=== PATIENT | male | born 1945 | race Caucasian/White ===

== ENCOUNTER 2018-03-07 12:58 | Inpatient (IN) | payer OTHER, MEDICAID ==
[~2018-03-07] VITALS: Ht 172.7 cm; Wt 78.0 kg
--- NOTE | ~2018-03-07 | PR ---
[place], [place] PROGRESS NOTE NAME: IVÁN OLSON UNIT #: [id number] ROOM: 315 DOCTOR: BRYCE VASQUEZ MD BIRTHDATE: [birth year] DOS: 03/15/2018 CHIEF COMPLAINT: "I guess I say things that I shouldn't. I've always been that way." SUMMARY OF THE VISIT: The patient was interviewed as he was coming into the continued stay hearing. He was pleasant and quite talkative during the hearing. He voiced no complaints other than he was somewhat remorseful over his behavior. He has been much more contrite and much more redirectable. MENTAL STATUS: He is alert and oriented to person, possibly place, certainly not time. Mood does seem to be trending towards euthymia. Affect is more appropriate. There is no kacey or hypomania. There are no gross psychotic symptoms. Short term memory continues to be problematic. PLAN: I will recheck a serum ammonia level today and maintain his current psychotropic regimen. Continue to engage in individual and velasquez milieu activity, returning to the least restrictive environment when psychiatrically stable. BRYCE VASQUEZ MD CM:PNTRANS [id number] BRYCE VASQUEZ MD 03/16/18 0326 interface
--- NOTE | ~2018-03-07 | PR ---
[place], [place] PROGRESS NOTE NAME: IVÁN OLSON UNIT #: [id number] ROOM: 309 DOCTOR: BRYCE VASQUEZ MD BIRTHDATE: [birth year] DOS: 03/09/2018 CHIEF COMPLAINT: "See all the pratt over there, what's going on here." SUMMARY OF THE VISIT: The patient was interviewed in the dining area. He had already finished his breakfast, and he was sitting there quietly. He engaged in superficial, confused, conversation with me tending to ramble once again. Nurses report that for the most part, he was pleasant yesterday until the late afternoon early evening when he became much more agitated and much more difficult to redirect. MENTAL STATUS: He is alert and oriented to person, possibly place, although that is doubtful, not to time. Mood does still seem to be labile. Affect inappropriate. There is no kacey or hypomania. There is no gross psychosis at this time, but this seems to exacerbate in the evening hours. Short-term memory is extremely problematic. PLAN: I will add Risperdal M-Tab 1 mg at q. 1700 hours in an effort to get ahead of any symptoms. Engage in individual and velasquez milieu activity, returning to the least restrictive environment when psychiatrically stable. BRYCE VASQUEZ MD CM:PNTRANS [id number] 21 BRYCE VASQUEZ MD 03/09/182123 interface
--- NOTE | ~2018-03-07 | PR ---
[place], [place] PROGRESS NOTE NAME: IVÁN OLSON UNIT #: [id number] ROOM: 315 DOCTOR: BRYCE VASQUEZ MD BIRTHDATE: [birth year] DOS: 03/14/2018 CHIEF COMPLAINT: "Oh, I'm okay. I don't need anything." SUMMARY OF THE VISIT: The patient was interviewed as he was sitting in a Angie chair in the dining area. He had completed his breakfast. He engaged in pleasant conversation with me. At no time during his conversation with me was he inappropriate. He was not labile. He was not agitated. He was not aggressive; however, nurses report an entirely different picture as the day goes on. He has been resistant to care. He has been verbally and physically combative. He has been yelling out profanities and has been striking out at times. He has been tolerating the medicine well. There is some mild drooling noted. MENTAL STATUS: He is alert and oriented to person, place, not necessarily time. Mood does seem to be trending towards euthymia at least with me, although again nurses report a different picture. They paint a picture of extreme mood lability and impulsivity. There are no overt auditory or visual hallucinations. No voiced delusions. No voiced paranoia. Short term memory continues to be problematic. PLAN: His valproic acid level is therapeutic at 69.2, so I will maintain his current Depakote dosing. I will renew his p.r.n. Ativan should he require intervention. Given the fact that he is exhibiting significant impulsivity and aggression during the day, I will increase his Risperdal from 1 mg twice a day to 2 mg twice a day. I will add Cogentin 1 mg twice a day to offset the extrapyramidal symptoms that are causing the drooling. I will engage in individual and velasquez milieu activity with the ultimate plan to return to the least restrictive environment when psychiatrically stable. BRYCE VASQUEZ MD CM:PNTRANS [id number] BRYCE VASQUEZ MD 03/15/18 0339 interface
--- NOTE | ~2018-03-07 | PR ---
[place], [place] PROGRESS NOTE NAME: IVÁN OLSON UNIT #: [id number] ROOM: 315 DOCTOR: ROXANE DANIELS CNP BIRTHDATE: [birth year] DOS: 03/18/2018 CHIEF COMPLAINT: "I am not good." SUMMARY OF THE VISIT: The patient was interviewed as he sat in a recliner chair in the dining room. The patient reports that he is not feeling well. He is sleeping well. Staff reports that the patient's mood continues to be labile. He has been nauseated. He did take his medications. His serum ammonia level remains elevated, and his lactulose was increased on the th to 30 g 4 times a day. MENTAL STATUS EXAMINATION: The patient is alert and oriented. He was pleasant and cooperative with me. No kacey or hypomania. No delusions or paranoia. No auditory or visual hallucinations. No gross psychosis noted. He verbalizes minimally with me and does not open his eyes as we talk. His mood was calm. No aggression, no agitation noted at this time. PLAN: We will continue the patient's medications as prescribed. We will recheck an ammonia level tomorrow morning. We will continue to encourage the patient to engage in individual and velasquez milieu activity. Continue fall and safety precautions and plan to return the patient to the least restrictive environment once considered psychiatrically stable. Roxane Daniels CNP CM:PNTRANS [id number] ROXANE DANIELS CNP 03/18/18 2350 interface
--- NOTE | ~2018-03-07 | WRIGHTHP ---
[place], [place] PATIENT HISTORY AND PHYSICAL EXAM NAME: IVÁN OLSON UNIT #: [id number] ROOM: 309 DOCTOR: BRYCE VASQUEZ MD BIRTHDATE: [birth year] DOS: 03/08/2018 CHIEF COMPLAINT: "Oh, I got off the bus and all I saw was pratt and monuments, it was the strangest thing." HISTORY OF PRESENT ILLNESS: This is a 72-year-old white male who is a resident of [facility] in [place], [place]. The patient was sent here after increased behaviors, especially verbal and physical aggression towards staff and other patients. In fact, when the patient was sent to the Emergency Room at [facility] he was significantly agitated and aggressive. The patient has a history of having a brain tumor that was surgically removed and having a history of seizures. His last seizure apparently was in 1998. He is admitted now to rule out organic factors, to stabilize on medication and to return to the least restrictive environment. 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 SOCIAL HISTORY: He does not use illicit drugs. He does not use alcohol nor is he a smoker. ALLERGIES: He lists no known allergies. STRENGTHS: Good verbal skills. WEAKNESSES: Cognitive decline, poor coping skills. MENTAL STATUS: He is alert and oriented to person, possibly place, not to time. Mood this morning with me was fairly euthymic and he was rather talkative just grabbing to me how he got here stating that he had taken a bus into a field of pratt and monuments. He did remember he lived in [place], but could not tell me where he lived, he was pleasant and bright for the most part, he was not agitated. Memory had gaps, note this is in mahan contrast to what nurses noted in the evening when he was verbally and physically aggressive towards staff and even called the security people multiple names and try to engage them in physical altercations. 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 PLAN: I have increased his Exelon patch from 4.6 to 9.5 mg and will target a 13.3 mg dose. Likewise, I have increased his Namenda from 10 mg a day to 10 mg b.i.d. I have added Depakote 250 mg twice daily and 500 mg at bedtime to decrease his impulsivity. I will check an RBC folate level given his lengthy history of being on Dilantin and also check a prolactin level to see if there is a possibility that he is having unwitnessed seizures. We will engage in individual and velasquez milieu activity, returning to the least restrictive environment when psychiatrically stable. [place], [place] PATIENT HISTORY AND PHYSICAL EXAM NAME: IVÁN OLSON UNIT #: [id number] ROOM: 309 DOCTOR: BRYCE VASQUEZ MD BIRTHDATE: [birth year] BRYCE VASQUEZ MD CM:HISPHYS:PATIENT HISTORY AND PHYSICAL EXAMINATION 2 BRYCE VASQUEZ MD 03/08/18914 interface
--- NOTE | ~2018-03-07 | EKG ---
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
--- NOTE | ~2018-03-07 | PR ---
[place], [place] PROGRESS NOTE NAME: IVÁN OLSON UNIT #: [id number] ROOM: 315 DOCTOR: BRYCE VASQUEZ MD BIRTHDATE: [birth year] DOS: 03/10/2018 INTERVAL NOTE CHIEF COMPLAINT: "What do you want?" SUMMARY OF THE VISIT: The patient was interviewed as he was sitting, eating his breakfast. He was a little terse at first, but then did soften his approached with me. Nurses report those very negative behaviors. He is both verbally and physically aggressive and sexually inappropriate. He has grabbed multiple female staff's private parts and made very little lude and profane comments. He also has been very verbally derogatory towards others and has been resistive to care and hostile. Outwardly, he is tolerating the medication regimen well and I see no sedation, somnolence, extrapyramidal symptoms or tardive dyskinesia. MENTAL STATUS: He remains alert and oriented to self, unclear place, certainly not time. Mood is labile. Affect inappropriate. Responses are short, simple, at times inappropriate. There is a great deal of mood lability and processing difficulty and short-term memory is problematic. PLAN: I will check a serum ammonia level today as this was not completed and check a valproic acid level in the morning. I will maximize Exelon patch to 13.3 mg a day, attempting to impact positively on ADL behavior and communication. I will increase his Risperdal M-Tab to 1 mg twice daily and also add Celexa 20 mg a day to decrease his sexual inappropriateness. Celexa has also been shown in some instances to decrease the aggression associated with dementia. We will engage in individual and velasquez milieu activity, returning to the least restrictive environment when psychiatrically stable. BRYCE VASQUEZ MD CM:PNTRANS 3 3 BRYCE VASQUEZ MD 03/10/1835 interface
--- NOTE | ~2018-03-07 | PR ---
[place], [place] PROGRESS NOTE NAME: IVÁN OLSON UNIT #: [id number] ROOM: 315 DOCTOR: BRYCE VASQUEZ MD BIRTHDATE: [birth year] DOS: 03/13/2018 INTERVAL NOTE CHIEF COMPLAINT: "Hey, hey what are you doing there?" SUMMARY OF THE VISIT: The patient was interviewed as he sat in the dining area waiting for his breakfast. He engaged in brief superficial conversation with me fairly pleasant. There was no agitation or aggression, no mood lability. He did not yell at me profanely. He was not sedated or somnolent either. He seems to be tolerating the current medication regimen well. MENTAL STATUS: He is alert and oriented to self, unclear place, certainly not time. Mood does seem to be trending towards euthymia. Affect is more appropriate. There is no kacey or hypomania, gross psychosis or agitation. Short-term memory continues to be problematic. PLAN: I will renew his p.r.n. Ativan should he require intervention, increase his lactulose of 30 grams twice daily in an attempt to bring his serum ammonia level down further and check a valproic acid level in the a.m. Engage in individual and velasquez milieu activities, returning to the least restrictive environment when psychiatrically stable. BRYCE VASQUEZ MD CM:PNTRANS 0 BRYCE VASQUEZ MD 03/13/18 0922 interface
--- NOTE | ~2018-03-07 | PR ---
[place], [place] PROGRESS NOTE NAME: IVÁN OLSON UNIT #: [id number] ROOM: 315 DOCTOR: BRYCE VASQUEZ MD BIRTHDATE: [birth year] DOS: 03/17/2018 INTERVAL NOTE CHIEF COMPLAINT: "I feel nauseated." SUMMARY OF THE VISIT: The patient was interviewed as he was quite massively eating his breakfast. He was spooning cream of wheat into his mouth and half of it was falling onto his chest and lap. He remained rather confused and disjointed and his serum ammonia level has been elevating over the last day reaching a high of 111 and most recently going down to just 95. MENTAL STATUS: He remains alert and oriented to person, possibly place, not to time. Mood is trending towards euthymia and he has been less labile and more redirectable. There are no overt auditory or visual hallucinations, delusions or paranoia. Short-term memory continues to be problematic. PLAN: Given the fact that his ammonia level has risen since his initial admission here, I will discontinue his Depakote in case this is contributing to a higher ammonia level. I may have to then correspondingly increase his Risperdal to decrease some of his mood lability if needed. We will monitor and support, engage in individual and velasquez milieu activity, returning to the least restrictive environment when psychiatrically stable. BRYCE VASQUEZ MD CM:PNTRANS [id number] BRYCE VASQUEZ MD 03/18/18 0544 interface
--- NOTE | ~2018-03-07 | EKG ---
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
--- NOTE | ~2018-03-07 | PR ---
[place], [place] PROGRESS NOTE NAME: IVÁN OLSON UNIT #: [id number] ROOM: 315 DOCTOR: BRYCE VASQUEZ MD BIRTHDATE: [birth year] DOS: 03/16/2018 INTERVAL NOTE CHIEF COMPLAINT: "Oh, I am okay, thank you. I just wish I had not done what I did." SUMMARY OF THE VISIT: The patient was interviewed as he was sitting in a Angie chair in the dining area. He had already completed his breakfast. He was very pleasant upon approach and engaging remorseful for previous actions, but redirectable. There was no agitation or aggression, no mood lability. He remains pleasantly confused for the most part. MENTAL STATUS: He is alert and oriented to person, possibly place, not to time. Mood does seem to be strongly trending towards euthymia. Affect is more appropriate. There is no kacey or hypomania. There is no gross psychosis. Short-term memory remains problematic. PLAN: His serum ammonia level is grossly elevated at 111. He remains on Chronulac. We will monitor and continue to check serum ammonia levels periodically as we give him the Chronulac. Continue his other psychotropics, engage in individual and velasquez milieu activity, returning then to the least restrictive environment when psychiatrically stable. BRYCE VASQUEZ MD CM:PNTRANS [id number] BRYCE VASQUEZ MD 03/17/18 0431 interface
--- NOTE | ~2018-03-07 | CON ---
[place], [place] REPORT OF CONSULTATION NAME: IVÁN OLSON UNIT #: [id number] ROOM: 309 DOCTOR: PHD ERNST SIERRA BIRTHDATE: [birth year] DOS: 03/08/2018 HISTORY OF PRESENT ILLNESS: The patient is a 72-year-old male referred by Dr. Kenney for competency evaluation. At the present time, the patient is on the [facility] Unit at [facility]. He is a resident at [facility]. He is and has one son. He reports history of alcohol abuse. PAST MEDICAL HISTORY, Macrocytosis without anemia, history of brain tumor and seizure disorder. MEDICATIONS: Pepcid, Dilantin, Exelon, Depakote, Namenda, Geodon, Hardin 5/325, Ativan. PHYSICAL EXAMINATION: The patient was awake, alert and oriented to person and city. He gave the type of place as the [facility] and the date as 03/07/2007. Mood was stable and affect was restricted in range. He denied suicidal and homicidal ideation, plan and intent. Speech was hyperverbal. Expressive and receptive language appeared within normal limits on a conversational basis. Thought process was circumstantial. Thought content was noteworthy for confusion. Insight and judgment were poor. The patient could spell world forwards, but not backwards and could not complete any serial 7 subtractions. He had been engaging in increased physical aggression at his [facility] and had demonstrated this behavior on the unit as well. He was pleasant and cooperative during this evaluation. However, in my opinion, the patient is not competent to make informed health care decisions at this time. He struggled with short and long-term memory on a conversational basis. He would benefit from establishing guardianship. DIAGNOSIS: Unspecified neurocognitive disorder. RECOMMENDATIONS: In my opinion, the patient is not competent to make informed healthcare decisions. Thank you very much for this consult. Tala Sierra, PhD CM:CONSTR:REPORT OF CONSULTATION 1812 03/09/18 0702 interface
--- NOTE | ~2018-03-07 | DS ---
[place], [place] DISCHARGE SUMMARY [id number] UNIT #: [id number] ROOM: 315 DOCTOR: ROXANE WOLF CNP BIRTHDATE: [birth year] DOS: 03/19/2018 CHIEF COMPLAINT: The patient was discharged from to the ICU due to acute respiratory failure. HISTORY OF PRESENT ILLNESS: This is a 72-year-old male who was sent to the Emergency Room from [facility] in [place]. He was medically cleared in the Emergency Room before being admitted to Behavioral Health Unit, as reported that he had been punching flor, wanting the ceiling to open, so he can leave, threatening staff. He threw a lamp. Once he was medically cleared in the Emergency Room, then he was brought to the Behavioral Health Unit for further psychiatric stabilization. The patient was admitted to the unit. SUMMARY OF HOSPITAL COURSE: The patient was admitted to the Behavioral Health Unit, where he was started on Celexa 20 mg daily as well as Exelon, which was titrated to 13.3 mg patch daily. He was also titrated on Namenda to 10 mg twice a day. He was started on Risperdal, which was titrated to 2 mg twice a day and he was also started on benztropine 0.5 mg twice a day. It was found that while the patient was here that his ammonia level was significantly elevated and he was started on lactulose, which was ended up being increased to 30 grams 4 times a day. The patient's behavior significantly improved during his course here in the unit; however, this morning, the patient began to medically decline and became hypoxic. It was felt at this time that it was necessary to transfer him to the ICU. Psychologically, he was considered stable enough to proceed with the transfer. Mental Status: At the time of discharge, the patient was alert with some confusion. There was no kacey or hypomania noted. No delusions or paranoia noted. No auditory or visual hallucinations noted. DISCHARGE DIAGNOSES: Intermittent explosive disorder as well as dementia. DISPOSITION: The patient was transferred to the ICU here at [facility]. At the time of discharge from the unit, the patient was considered psychiatrically stable; however, he was medically declining; therefore, it was felt to be necessary to transfer him at this time. [place], [place] DISCHARGE SUMMARY NAME: IVÁN OLSON UNIT #: [id number] ROOM: [facility] DOCTOR: ROXANE WOLF CNP BIRTHDATE: [birth year] Roxane Wolf CNP CM:CHEO [id number] ROXANE WOLF CNP 03/28/18 1140 interface
[2018-03-07 13:03] VITALS: BP 133/74
[2018-03-07 13:12] LABS: BASO % 0.7 % (0.0-1.0); HEMATOCRIT 40.8 % (42.0-52.0); LYMPH # 1.1 10*3/uL (1.3-4.4); LYMPH % 17.6 % (27.0-41.0); MEAN CELL VOLUME 100.7 fl (80.0-94.0); MEAN CORPUSCULAR HGB 34.6 pg (27.0-31.0); MEAN CORPUSCULAR HGB CONC 34.3 g/dl (33.0-37.0); MEAN PLATELET VOLUME 9.7 fl (9.6-12.3); MONO # 0.7 10*3/uL (0.1-1.0); NEUT # 4.2 10*3/uL (2.3-7.9); NEUT % 70.5 % (47.0-73.0); PLATELET COUNT AUTOMATED 184 10*3/uL (130-400); RED BLOOD COUNT 4.05 10*6/uL (4.50-5.90); RED CELL DISTRI WIDTH 13.1 % (0-14.5)
[2018-03-07 13:21] LABS: ACT PARTIAL THROMBO TIME 25.1 SECONDS (20.8-31.5)
[2018-03-07 13:27] LABS: ALBUMIN 3.7 gm/dl (3.1-4.5); ALKALINE PHOSPHATASE 116 U/L (45-117); BUN 21 mg/dl (7-24); CHLORIDE 104 mmol/L (98-107); CREATININE 1.07 mg/dL (0.70-1.30); LIPASE 129 U/L (73-393); POTASSIUM 4.4 mmol/L (3.5-5.1); SGOT/AST 16 IU/L (3-35); SGPT/ALT 19 U/L (12-78); SODIUM 139 mmol/L (136-145); TOTAL PROTEIN 7.3 gm/dL (6.4-8.2); TROPONIN I 0.029 ng/ml (<0.045)
--- NOTE | 2018-03-07 14:26 | NUR ---
PT EATING HIS LUNCH TRAY
[2018-03-07 15:39] LABS: BILIRUBIN NEGATIVE (NEGATIVE); BLOOD TRACE-INTACT (NEGATIVE); CLARITY CLEAR (CLEAR); COLOR YELLOW (YELLOW); GLUCOSE NEGATIVE (NEGATIVE); KETONE NEGATIVE (NEGATIVE); LEUKO ESTERASE NEGATIVE (NEGATIVE); NITRITE NEGATIVE (NEGATIVE); SPECIFIC GRAVITY 1.015 (1.005-1.030); UROBILINOGEN 0.2 E.U./dl (0.2-1.0)
[2018-03-07 15:46] LABS: URINE AMPHETAMINES < 1000 (1000ng/ml); URINE BARBITURATES < 200 (200ng/ml); URINE BENZODIAZEPINES < 200 (200ng/ml); URINE CANNABINOIDS (THC) < 50 (50ng/ml); URINE COCAINE < 300 (300ng/ml); URINE METHADONE < 300 (300ng/ml); URINE OPIATES < 300 (300ng/ml)
[2018-03-07 15:50] LABS: URINE PHENCYCLIDINE < 25 (25ng/ml)
[2018-03-07 15:56] LABS: BACTERIA TRACE
--- NOTE | 2018-03-07 16:09 | NUR ---
BOO TO COME AND GET PATIENT.
[2018-03-07] MEDS ORDERED: NAMENDA10 MG PO (16:11)
[2018-03-07 16:13] VITALS: BP 136/78
[2018-03-07] MEDS ORDERED: EXELON1 EACH T (16:13)
[2018-03-07] MEDS ORDERED: NORCO 5-325 TA1 EACH PO (16:13)
[2018-03-07] MEDS ORDERED: DILANTIN100 MG PO (16:15)
[2018-03-07] MEDS ORDERED: SEROQUEL25 MG PO (16:15)
[2018-03-07] MEDS ORDERED: PEPCID20 MG PO (16:16)
[2018-03-07] MEDS ORDERED: TYLENOL325 M3 PO (16:16)
[2018-03-07] MEDS ORDERED: NATURAL BALANCE15 M1 OU (16:17)
[2018-03-07] MEDS ORDERED: DULCOLAX10 M1 R (16:18)
--- NOTE | 2018-03-07 16:47 | NUR ---
PT UP TO RUST WITH NURSE AND WINDOWS VMWARE ADMINISTRATOR.
[2018-03-07 16:59] VITALS: BP 141/90
[2018-03-07 17:18] VITALS: BP 141/90
--- NOTE | 2018-03-07 17:39 | NUR ---
SPOKE WITH DR. NIXON AT [phone] RE:CONSULT FOR MEDICAL MANAGEMENT PER DR. GONSALEZ CONSULT UNDER
--- NOTE | 2018-03-07 17:42 | NUR ---
IVÁN OLSON a 72 year old M admitted via wheel chair from the EMERGENCY ROOM as a emergency 72 hr. hold admission. Arrived on unit at 1650. ALLERGIES: NKA . Vital signs are: 97.3-93-20 141/90. The client DID NOT sign the following FORMS D/T PINK SLIP AND COGNITION with stated understanding: Authorization For The Release of Medical Information, Clothing List, Consent to Voluntary Admission and Hospitalization, Consent and Release Forms/Receipt of Rights, Acknowledgement of Advance Directive Information, Behavioral Health Consent Form, and Informed Consent of Medications. Admitted under the services of Dr. CHRISTINA ISAACS,[facility]. A search was conducted and hazardous articles were removed. Client was oriented to the unit. DANG SHANKAR PT ALERT TO PERSON AND PLACE, NOT TIME OR SITUATION, SHORT TERM/DEALER CARD ROOM MEMORY DEFICITS NOTED. PT ANXIOUS AND RESTLESS AT TIMES. PT DENIES ANY SUICIDAL THOUGHTS, CONTRACTED FOR SAFETY IF SUCH THOUGHTS ARISE. PT UP TO WHEELCHAIR D/T UNSTEADY GAIT AND LACK OF SAFETY AWARENESS. PT CONTINENT OF BOWEL AND BLADDER.
[2018-03-07 20:00] VITALS: BP 132/77
--- NOTE | 2018-03-07 20:15 | NUR ---
PT WAS IN DINNINGROOM YELLING OUT. YELLING AT OTHER PTS TO NOT TAKE THEIR MEDICATION. STAFF WAS POISONING THEM. PT CALLING STAFF AND PTS DOUCHEBAGS AND PT REMOVED FROM THE DINNINGROOM. PT ALSO CALLING STAFF "CUNT, WHORE, BITCH" PT TELLING STAFF HE WAS GOING TO WRING STAFF NECKS AND STATING WAIT TILL I SEE YOU OUT OF HERE" SECURITY CALLED TO UNIT FOR BACKUP AND PT TOLD SOFTWARE ENGINEERING ASSOCIATE MANAGER TO PUT A DRESS ON. PT WAS PLACED IN KATHLEEN CHAIR AND IM ATIVAN GIVEN PER PRN ORDER. WILL CONTINUE TO MONITOR BEHAVIORS WITH Q15 MINUTE SAFETY CHECKS.
--- NOTE | 2018-03-07 20:30 | NUR ---
PT ATTEMPTED TO GRAB A STAFF MEMBERS THROAT TO CHOKE THE STAFF. ATTEMPTED TO BITE STAFF. CALLING STAFF MONKEIES. CONTINUES TO BE COMBATIVE STRIKING OUT AT STAFF.
--- NOTE | 2018-03-07 20:34 | NUR ---
PT BENDING KATHLEEN CHAIR TRAY AND BEING COMBATIVE STRIKING OUT AT STAFF AND SECURITY GUARDS. CONTINUES TO YELL. TELLING SECURITY GUARDS "I WILL REMEMBER YOU. i WILL TAKE YOUR JOB"
--- NOTE | 2018-03-07 20:45 | NUR ---
PRN ATIVAN INEFFECTIVE. CONTINUES TO YELL AND STRIKE OUT. PRN GEODON GIVEN AT THIS TIME. 1:1 PROVIDED AT THIS TIME. WILL CONTINUE TO MONITOR PT'S BEHAVIOR WITH Q15 MINUTE SAFETY CHECKS.
--- NOTE | 2018-03-07 21:00 | NUR ---
ALTON HAMMOND EFFECTIVE AT THIS TIME. PT IS BECOMING CALMER AND TELLING STAFF STORIES. PT APOLOGIZED TO STAFF FOR HIS BEHAVIORS. WILL CONTINUE TO MONITOR BEHAVIORS WITH Q15 MINUTE SAFETY CHECKS.
--- NOTE | 2018-03-08 06:01 | NUR ---
PT SLEPT APPROXIMATELY 5 HOURS THIS SHIFT. Q15 MINUTE SAFETY CHECKS MAINTAINED.
--- NOTE | 2018-03-08 06:45 | NUR ---
DURING MED PASS THIS AM PT STATED "YOU HAVE SOFT HANDS. YOU ALSO HAVE OTHER SMALL SOFT STUFF THAT I LIKE". PT REDIRECTED AND EXPLAINED TO PT THAT WAS INAPPROPRIATE. LATER PT STATED TO THIS NURSE "COME HERE I WANT A KISS OR TWO OR THREE". PT THEN STATED TO MILIEU "I WANT A HUG WHAT ARE YOU DRINKING." PT THEN CALLED MILIEU "A LITTLE DEVIL". ALL ATTEMPTS TO REDIRECT PT WAS UNSUCCESSFUL. PT WAS ALSO TELLING OTHER PTS NOT TO TAKE THEIR MEDICATION DUE TO STAFF POISONING THEM. PT REMOVED FROM DINNING AREA AND PLACED IN QUIET ROOM.
[2018-03-08 08:09] LABS: CHOLESTEROL 162 mg/dL (<200); HDL CHOLESTEROL 65 mg/dl (40-60); LDL CHOLESTEROL 87 mg/dL (9-159); TRIGLYCERIDES 52 mg/dl (<150); VLDL CHOLESTEROL 10 mg/dL (6-40)
[2018-03-08 08:22] VITALS: BP 118/69
--- NOTE | 2018-03-08 08:30 | NUR ---
Discharge Plan for pt. to discharge next week. Pt. short term at [facility]. Will reach out to facility today.
--- NOTE | 2018-03-08 08:43 | NUR ---
ON UNIT AT THIS TIME, NOTIFIED OF NEW CONSULT FOR COMPETENCY.
--- NOTE | 2018-03-08 11:38 | NUR ---
ASSESSMENT 1:1 AND ASSESSMENT COMPLETED WITH PT. PT EXHIBITED PARANOID AND DELUSIONAL IDEATIONS DURING ASSESSMENT. PT WAS ASKED WHY HE WAS HERE AND RESPONDED WITH A VERY LONG "EXPLAINATION" PT STATED, "I THINK EVERYONE IN THE TOWN THAT I LIVE IN ARE OUT TO GET ME. I WAS LOST IN THIS CEMETARY LIKE PLACE AND SIMPLY YELLED OUT FOR HELP...." PT BELIEVES THAT HE "LIVES WITH FRIENDS". WHEN PT MENTIONED HE WOULD WEEP. WHEN ASKED TO JOIN GROUP PT STATED, "I CAN'T BE AROUND OTHER PEOPLE UNLESS THEY ARE WITH IT, I CAN'T SIT THERE AND LISTEN TO THEM GRUNT AND NOT TALK INTELLIGENTLY. PT GOALS ARE TO REORIENT WHEN NECESSARY, VENT FEELINGS WHEN WEEPYNESS OCCURS AND TO ATTEND AND PARTICIPATE IN GROUP ACTIVITIY.
--- NOTE | 2018-03-08 11:46 | NUR ---
AM GROUP THERAPY/SELF-CARE PT CHOSE NOT TO ATTEND MORNING GROUP THERAPY. PT STATED, "I CAN'T BE WITH PEOPLE WHO JUST GRUNT AND CAN'T COMMUNICATE. I WOULD JUST OPEN MY MOUTH" PT WILL BE ENCOURAGED TO ATTEND AFTERNOON GROUP.
--- NOTE | 2018-03-08 12:35 | NUR ---
PT REMOVED FROM DINING ROOM, TAKEN FOR A WALK BY MALE ANGIE AND THEN PLACED IN GROUP ROOM DIRECTLY ACROSS FROM NURSES STATION DUE TO VULGAR BEHAVIOR TOWARD PEERS DURING LUNCH. PT BECAME PREOCCUPIED WITH NURSE WORKING AT THE NURSE'S STATION. PT BEGAN CALLING THE NURSE REPEATEDLY STATING "HEY YOUNG LADY! HEY COME HERE!" RN ASKED PT WHAT WE COULD DO FOR HIM, PT STATES "YOU CAN COME OVER HERE. I DEMAND IT. IT'S A MAN'S WORLD, HONEY. YOU MUST NOT READ ENOUGH BOOKS AND MAGAZINES. THERE SHE IS! WITH THE PONYTAIL AND THE HAIR FALLING DOWN! SHE'S GOT A WIGGLE AND A WALK, A GIGGLE AND A TALK! THAT'S WHAT I LIKE, BABY!" PT THEN BEGAN SCREAMING "NORI BORDEN! I'M NORI BORDEN! NORI BORDEN! AND TORREY SNOW IS RIGHT OVER THERE! PT LOOKED TO HIS LEFT AND SAID 'HI TORREY! WAVE AT US TORREY! OK NOW GO BACK IN THE COFFIN'". PT THEN BEGAN SCREAMING "RED RIDING CHILDERS" AND BEGAN YELLING AT A FEMALE PEER IN THE HALLWAY. PT WAS TAKEN TO QUIET ROOM WITH LIGHTS DIMMED IN AN ATTEMPT TO PROVIDE A LESS STIMULATING ENVIRONMENT FOR DE-ESCALATION. PT IS CURRENTLY SINGING [employer] VERY LOUDLY AND TALKING ABOUT PRESIDENT LAURENT CALLING ON THE PHONE. Q15 MIN MONITORING CONTINUES. MOBILITY ALARMS ACTIVE AND AUDIBLE.
--- NOTE | 2018-03-08 12:40 | NUR ---
P-ORIENTED TO SELF ONLY, OTHERWISE CONFUSED. DISTRUPTIVE TO TRACY MILIEU. VERBALIZING GRANDIOSE DELUSIONS TO STAFF. NO COMBATIVE BEHAVIORS NOTED AT THIS TIME. VULGER AND INAPPROPRIATE DURING 1:1 CONVERSATIONS WITH STAFF. I-REDIRECTION, REORIENTATION, REALITY PRESENTATION, 1:1. R-ALL INTERVENTIONS ATTEMPTED HAVE BEEN INEFFECTIVE THUS FAR. PT CONTINUES TO BE INAPPROPRIATE WITH STAFF AND SCREAMING. P-ENCOURAGE GROUPS AND DIVERSIONAL ACTIVITIES PRN.
--- NOTE | 2018-03-08 12:42 | NUR ---
Spoke to Tracy at [facility] regarding pre-authorization. IP wiliam through 03/16, NRD 03/16. Auth # [id number].
--- NOTE | 2018-03-08 14:08 | NUR ---
/next of kin stated she did not know he was in the hospital. Notified and obtained collateral information from next of kin/ due to pt having limitations in answering PSA questions. indicated she would like pt to return to [facility] at discharge and that they are in the process of obtaining POA ppwk. "It's a shock that he is behaving like this". Psychosocial assessment completed. Collaborated with special events planner and tx team.
--- NOTE | 2018-03-08 15:37 | NUR ---
PM GROUP THERAPY/RELAXATION TECHNIQUES PT DID NOT ATTEND AFTERNOON GROUP THERAPY DUE TO HIGH LEVEL OF AGITATION. PT WAS PLACED IN QUIET ROOM AND YELLED AND SPOKE TO UNSEEN OTHERS FOR A LONG TIME. PT WAS BROUGHT INTO THERAPY ROOM BY NURSE FOR THE LAST 20 MINUTES AND PT BECAME FIXATED WITH THIS STEEL ROLLER STATING, "IF YOU WERE MINE I WOULD PUT YOU ON A PEDISTOOL. PLEASE DON'T LEAVE, IF YOU LEAVE I AM DONE FOR..." PT BEGAN SPEAKING INAPPROPRIATELY AND REDIRECTION WAS NOT EFFECTIVE. NURSE REMOVED PT FROM THE ACTIVITY ROOM.
--- NOTE | 2018-03-08 15:51 | NUR ---
Spoke with Fadumo at [facility]. Pt. was short term for therapy at facility and they are not able to accomodate patient needs due to behaviors. Will need referred to other facilities.
--- NOTE | 2018-03-08 16:00 | NUR ---
Referrl to [facility].
--- NOTE | 2018-03-08 16:30 | NUR ---
ON UNIT TO SEE PT.
--- NOTE | 2018-03-08 17:20 | NUR ---
PT YELLS OUT PERIODICALLY ALL THROUGHOUT THE SHIFT. SPEECH IS NONSENSICAL AT TIMES. OTHER TIMES PT STATES HE IS "JOKING AROUND," HOWEVER PT IS VERY INAPPROPRIATE WITH STAFF CALLING EACH PERSON HE INTERACTS WITH A BELLIGERENT NAME. PT ALSO SEXUALLY INAPPROPRIATE WITH FEMALE STAFF. REDIRECTED EACH TIME WITH MINIMAL EFFECTIVENESS.
--- NOTE | 2018-03-08 19:45 | NUR ---
PT WAS YELLING IN THE DINNINGROOM. INTRUSIVE AND DISRUPTIVE TO THE UNIT. PT REMOVED FROM THE AREA AND PLACED IN THE QUIET ROOM. PT ATTEMPTING TO SLIDE OUT OF CHAIR AND STARTED TO SWING AT STAFF WHEN ATTEMPTING TO HELP. SECURITY CALLED AT THIS TIME TO HELP WITH PT.
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
--- NOTE | 2018-03-08 20:40 | NUR ---
PT RESTING QUIETLY NOW WITH EYES OPEN. SECURITY OFF THE FLOOR AT THIS TIME.
[2018-03-08 20:50] VITALS: BP 116/90
--- NOTE | 2018-03-08 23:42 | NUR ---
24 HR chart check completed.
--- NOTE | 2018-03-09 06:44 | NUR ---
PT SLEPT APPROXIMATELY 6 HOURS THIS SHIFT. Q15 MINUTE CHECKS MAINTAINED. PT CALM THIS AM AND HAD THERAPEUTIC COMMUNICATION WITH THIS NURSE. BECOMING TEARFUL AT TIMES TALKING ABOUT HIS CHILDHOOD AND BRAIN TUMOR SURGERIES.
[2018-03-09 07:57] VITALS: BP 124/69
--- NOTE | 2018-03-09 08:45 | NUR ---
Treatment Plan meeting with Dr. Kenney, RN, AT, SW and Collection Manager. Plan for discharge next week. Pt. will require alternate Placement, tamela unable to manage behaviors.
--- NOTE | 2018-03-09 09:35 | NUR ---
P-NONSENSICAL SPEECH, ORIENTED TO SELF ONLY-OTHERWISE CONFUSED, YELLING OUT. I-REDIRECTION, DIVERSIONAL ACTIVITIES, OFFER FLUIDS AND NUTRITION R-MINIMALLY EFFECTIVE FOR SHORT PERIODS OF TIME. UNABLE TO REORIENT PT DUE TO COGNITION AND ST MEMORY DEFICITS. P-ENCOURAGE GROUPS
--- NOTE | 2018-03-09 10:31 | NUR ---
P-INAPPROPRIATE JOKING WITH STAFF AT TIMES, ORIENTED TO SELF ONLY-OTHERWISE CONFUSED WITH ST/LT MEMORY DEFICITS I-REDIRECT, DIVERSIONAL ACTIVITIES, OFFER PO FLUIDS AND NUTRITION R-MINIMALLY EFFECTIVE FOR SHORT PERIODS OF TIME; OTHERTIMES PT BECOMES AGITATED WITH REORIENTATION AND REDIRECTION P-ENCOURAGE GROUPS AND QUIET TIME TO CALM
--- NOTE | 2018-03-09 11:45 | NUR ---
CALLED HOSPITALIST CELL FOR , ANWSERED. MADE AWARE REQUESTING [facility] FOR PT. STATES WILL CONVEY MESSAGE TO .
--- NOTE | 2018-03-09 11:47 | NUR ---
PT HAS BEEN INCREASINGLY SEXUALLY INAPPROPRIATE WITH STAFF AND PEERS THIS SHIFT REQUIRING MUCH REDIRECTION. PT VERBALIZING INAPPROPRIATE AND DEROGATORY REMARKS TO FEMALS PEERS. PT ASSISTED AWAY FROM FEMALE PEERS AND 1:1 COMPLETED. PT THEN GRABBING THE BUTTOCKS OF FEMALE STAFF. PT REDIRECTED AND 1:1 COMPLETED WITH MINIMAL EFFECT. PT VERBALIZES UNDERSTANDING, HOWEVER, CONTINUES TRYING TO TOUCH STAFF. WILL CONTINUE TO MONITOR.
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
--- NOTE | 2018-03-09 12:00 | NUR ---
PERSONAL DAILY GOAL REALITY ORIENTATION AND BOUNDRIES/SOCIAL APPROPRIATENESS
--- NOTE | 2018-03-09 13:04 | NUR ---
CALLED AND STATES APPROVED REQUEST FOR [facility]. LAB CALLED AND MADE AWARE.
--- NOTE | 2018-03-09 13:38 | NUR ---
SON, JATIN, UPDATED AT THIS TIME. PT HAD PLEASANT PHONE CALL WITH SON.
--- NOTE | 2018-03-09 13:51 | NUR ---
PT ATTEMPTING TO THROW SELF ON FLOOR. STAFF INTERVENED. SECURITY CALLED TO FLOOR TO ASSIST. PT IN QUIET ROOM TO CALM SELF. PT NOW SCREAMING OBSCENITIES AT STAFF INCLUDING "FUCK YOU CUNT! DOUBLE DOSE BUCKWHEAT!" FLIPPING STAFF OFF AND BANGING ON THE TABLE.
--- NOTE | 2018-03-09 13:53 | NUR ---
PT STATING "EAT THE BIG BANANA ONE BRIAN! I'LL KNOCK YOUR EFFING FACE OFF RIDING CHILDERS. THAT'S RIGHT I CAN SING TOO YOU CUNTLESS PUNK"
--- NOTE | 2018-03-09 14:05 | NUR ---
PT BECOMING INCREASINGLY AGITATED AND PHYSICALLY AGGRESSIVE WITH STAFF. ATTEMPTING TO STRIKE OUT AT STAFF. CONTINUES TO ATTEMPT PUTTING SELF ON FLOOR. SECURITY CALLED TO ASSIST STAFF DUE TO REDIRECTION, DIVERSION, FOOD/FLUID OFFERED, 1:1 ALL INEFFECTIVE. PRN ATIVAN GIVEN AT THIS TIME. WILL CONTINUE TO MONITOR FOR EFFECTIVENESS.
--- NOTE | 2018-03-09 14:24 | NUR ---
PT SLID HIMSELF OUT OF CHAIR ONTO FLOOR ON BUTTOCKS. PT CONTINUES DEMONSTRATING SEXUALLY INAPPROPRIATE BEHAVIORS TO ALL STAFF. SCREAMING AND YELLING. CURSING AT STAFF. SECURITY CALLED TO FLOOR. PT ASSISTED BACK TO CHAIR. GESTURING AND POSTURING TOWARDS STAFF. UNABLE TO CALM OR REDIRECT DURING 1:1. WILL CONTINUE TO MONITOR.
--- NOTE | 2018-03-09 14:50 | NUR ---
Referral to [facility] Attn: Mckenna.
--- NOTE | 2018-03-09 15:42 | NUR ---
PM GROUP/CREATIVE OUTLETS PT DID NOT ATTEND AFTERNOON GROUP THERAPY. PT WAS IN A QUIET SPACE FOR DE-ESCALATION OF BEHAVIORS THAT WERE DISRUPTIVE AND HARMFUL TO HIMSELF AND OTHERS.
--- NOTE | 2018-03-09 16:31 | NUR ---
PT SITTING IN DAY ROOM, CALM AND QUIET AT THIS TIME.
--- NOTE | 2018-03-09 18:13 | NUR ---
PT RESTING WITH EYES CLOSED AT THIS TIME.
[2018-03-09 20:17] VITALS: BP 131/66
--- NOTE | 2018-03-10 02:26 | NUR ---
24 HR chart check completed.
--- NOTE | 2018-03-10 05:31 | NUR ---
PT REFUSED MULTIPLE MEDICATIONS. PT TOOK DILANTIN AND DEPAKOTEFOR HS MEDS. PT REMAINED CALM AND HAD THERAPEUTIC COMMUNICATION WITH THIS NURSE. PT DID MAKE 2 INAPPROPRIATE STATEMENTS TO THIS NURSE. PT STATED THIS NURSE "SMELLED GOOD" AND WAS "CUTE". PT EFFECTIVELY REDIRECTED. SLEPT IN BED THIS SHIFT. NO YELLING OR COMBATIVE BEHAVIORS NOTED. Q 15 MINUTE SAFETY CHECKS MAINTAINED.
[2018-03-10 08:33] VITALS: BP 123/65
--- NOTE | 2018-03-10 10:46 | NUR ---
OT EVAL COMPLETED. OT MODERATE COMPLEXITY DETERMINED BY CHART REVIEW AND EVAL RECOMMEND [facility], OT
--- NOTE | 2018-03-10 10:57 | NUR ---
Spoke with Lucio at [facility]. No appropriate Beds available at this time.
--- NOTE | 2018-03-10 11:00 | NUR ---
Left Message for Arin at [facility] concerning Referral Faxed 03/08/18.
--- NOTE | 2018-03-10 11:34 | NUR ---
[facility] and provided all paperwork including Dr. Kenney signed H&P.
--- NOTE | 2018-03-10 11:41 | NUR ---
AM GROUP THERAPY NO AM GROUP DUE TO NEW PT ASSESSMENTS AND 1:1
--- NOTE | 2018-03-10 11:43 | NUR ---
JENNIFER FROM LAB CALLED TO NOTIFY THIS NURSE OF CRITICAL AMMONIA LEVEL 69. DR. STARKEY'S TEAM CALLED AT [phone]. DR. REDMAN ANSWERED AND MADE AWARE OF CRITICAL AMMONIA LEVEL 69. DR. REDMAN STATES "OK. I WILL TAKE A LOOK AT IT"
--- NOTE | 2018-03-10 11:47 | NUR ---
Spoke with Cem at [facility]. Pt. accepted. Advised of plans to discharge Mext week and that Medicaton adjustments are being made. Cem states that he will do onsite on Tuesday.
--- NOTE | 2018-03-10 13:04 | NUR ---
Met with Santa, , and son and discussed reason for admission. Son indicated this is a huge change since a few days ago as son saw pt on Tuesday. discussed inappropriate behaviors and comments and plan to have improved behavior. Santa endorsed SI and stated just give me some poison. Santa and family discussed Janae saying pt cannot return with behaviors as he was there for skilled rehab. Indicated that tool planner made referrals to places requested but none have accepted due to pts behaviors. Therefore, [facility] is an option as they have accepted pt and plan to do an on-site visit. Son requested to look at places in [place] and tool planner explained the issues with transfer to [place] due to insurance etc. Explained the civil committment process and plan and the consult from psychologist about considering guardianship as pt is incompetent and cannot sign POA ppwk. Offered family and pt support and encouragement.
--- NOTE | 2018-03-10 15:34 | NUR ---
PERSONAL DAILY GOAL IMPULSE CONTROL/AWARENESS OF PERSONAL BOUNDRIES PT SPEAKING AND TOUCHING INAPPROPRIATELY
--- NOTE | 2018-03-10 15:35 | NUR ---
PM GROUP/GAMES AND SOCIALIZATION PT DID NOT ATTEND AFTERNOON GROUP THERAPY. PT WAS IN A GROUP MEETING WITH SW AND FAMILY MEMBERS.
--- NOTE | 2018-03-10 17:30 | NUR ---
PT STATING "YOU ARE CUTE. DID YOU KNOW YOU ARE CUTE?" PT THEN LIGHTLY SLAPPED SELF WITH OPEN HAND ON LEFT SIDE OF FACE. PT STATES "I KNOW I AM NOT SUPPOSED TO SAY THAT. I DON'T KNOW WHY I SAY THAT. BUT YOU ARE CUTE" PT EDUCATED ON APPROPRIATENESS OF BEHAVIORS EXPECTED ON THIS UNIT. PT REDIRECTED. LEFT SIDE OF FACE ASSESSED AT THIS TIME, NO ERYTHEMA NOTED. PT LAUGHING. STATES "I'M SORRY". NO FURTHER INAPPROPRIATE VERBALIZATIONS. CONTINUE TO REDIRECT PT NEEDED. ENCOURAGE PARTICIPATION IN GROUP ACTIVITY FOR APPROPRIATE AND SUPERVISED SOCIALIZATION AND SUPPORT.
[2018-03-10 19:19] VITALS: BP 119/71
--- NOTE | 2018-03-10 20:15 | NUR ---
Obtained court paperwork. Served pt court ppwk for hearing notice and pt rights and provided copy to pt. Pt stated he had no questions at this time. Made comments about female staff being "cute" etc. Pt redirected. Pt seems to be doing a life review and inquired about God's thoughts on him.Pt offered support and encouragement. Copy of order of group home placed in chart. RN's notified of order of group home. notified via phone of hearing date/time. and College Associate provided copy of court ppwk.
--- NOTE | 2018-03-10 22:13 | NUR ---
24 HR chart check completed.
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
--- NOTE | 2018-03-11 05:39 | NUR ---
PT HAS SLEPT QUIETLY THROUGHOUT THE SHIFT PAST 2300
[2018-03-11 08:04] VITALS: BP 122/69
--- NOTE | 2018-03-11 11:29 | NUR ---
P: INAPPROPRIATE STATEMENTS, NEGATIVE THOUGHT PROCESS, CONCERNS IN REFERENCE TO MEDICATION QUANTITY I: PT TALKED WITH 1:1 WITH NURSE AND EDUCATED ON MEDICAITON, TO INCLUDE HOW MUCH HE HAS IMPROVED IN BEHAVIOR AND INTERACTION WITH THE MEDICATION ADJUSTMENTS. EDUCATED WITH EACH MEDICATION, PURPOSE AND HOW IT BENEFITS HIM. R: PT LAUGHED WITH THIS NURSE TALKING ABOUT HOW HE CAN'T BELEIVE HOW MUCH HE HAS CHANGED IN A SHORT TIME AND DIDN'T REALIZE HOW "WACKY" HE WAS. 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 HE STATED HE WOULD NEVER HURT HIMSELF BECAUSE HIS FAMILY NEEDS HIM. HE WAS INTERACTIVE AND SELF AWARE DURING GROUP PER THERAPIST. PT ACKNOWLEDGED THE MEDICATIONS AND APPEARED TO UNDERSTAND WHAT EACH WAS FOR. P: CONTINUE TO PROVIDE EMOTIONAL AND PHARMACOLOGICAL EDUCATION FOR PT, MONITOR MEDICATIONS FOR EFFECTIVENESS
--- NOTE | 2018-03-11 12:13 | NUR ---
AM GROUP/EXERCISES/FOCUS PT ATTENDED AND PARTICIPATED IN GROUP. PT EAGER TO LISTEN TO FOCUS GROUP. PT JOINED IN CONVERSATION WITH [facility] STAFF AND PEERS. PT AGITATED AT BEGINNING OF GROUP DUE TO A PT COUPLE PT'S TALKING TO STAFF TOO LOUD. THIS STAFF REDIRECTED ATTENTION TO FOCUS GROUP. PT DID NOT BECOME DELSUIONAL, COMBATIVE, OR SEXUALLY INAPPROPRIATE AT THIS TIME. PT WILL CONTINUE TO ATTEND AND PARTICIPATE IN FUTURE GROUP SESSIONS.
--- NOTE | 2018-03-11 12:16 | NUR ---
PERSONAL DAILY GOAL PT DAILY GOAL IS TO COPE WITH THE BUILT UP GUILT OVER THE YEARS. TO UTILIZE POSITIVE AFFIRMATIONS. PT BECAME TEARFUL STATING "HIS MOM WAS THERE BUT I WASN'T" REFERING TO RELATIONSHIP WITH SON.
--- NOTE | 2018-03-11 13:29 | NUR ---
DR. STARKEY ON UNIT TO SEE PT.
--- NOTE | 2018-03-11 16:18 | NUR ---
ALARM SOUNDING, PATIENT OBSERVED SLIDING OUT OF WHEELCHAIR IN DINING ROOM. DID NOT BUMP HEAD. PATIENT COMPLAINED OF LEFT SIDE (KIDNEY) PAIN. PATIENT ABLE TO MOVE ALL EXTREMITIES WITHOUT DIFFICULTY. PATIENT ASSISTED INTO KATHLEEN CHAIR. VITALS: 97.4, 72, 20, NON LABORED, 103/72, 96% RA. DR. AKERS, CAITLIN ROSA; RETAIL SHIFT SUPERVISOR AND SPOUSE NOTIFIED. PATIENT'S SPOUSE INFORMED NURSE THAT PAIN COMPLAINED TO THIS AREA YESTERDAY AND BEING NAUSEA LAST WEEK AT THE LONG TERM WHICH IS NOT NORMAL FOR HIM.
[2018-03-11 19:49] VITALS: BP 118/67
--- NOTE | 2018-03-11 21:51 | NUR ---
P-DROWSY I-AWAKEN PT WITH VERBAL & TACTILE STIMULATION, HELD HS MEDICATIONS DUE TO CONTINUED DROWSINESS, NO NOTED DROOLING R-PT AWAKENS FOR BRIEF PERIODS WITH VERBAL PROMPTING. TAKING FLUIDS WHEN DIRECTED. RETURNS TO SLEEP IN HIS BED QUIETLY P-CONTINUE TO MONITOR SLEEPING & ASSIST WITH ADLS NEEDED
--- NOTE | 2018-03-11 22:07 | NUR ---
P-INAPPROPRIATE STATEMENTS I-PROVIDE 1:1 FOR SUPPORT & VENTILATION OF FEELINGS. ASSESS BEHAVIOR, ADMINISTER HS MEDICATIONS, MONITOR SLEEP R-PT RECEPTIVE. ALERT TO PERSON, PLACE. MILDLY DEPRESSED. LIMITED VERBALLY, NO INAPPROPRIATE BEHAVIOR OR STATEMENTS, SPENT LEISURE TIME WATCHING TV QUIETLY. COMPLIANT TAKING HS MEDICATIONS WHOLE. ASSISTED TO BED BY 2 STAFF P-CONTINUE TO MONITOR
--- NOTE | 2018-03-11 22:54 | NUR ---
24 HR chart check completed.
--- NOTE | 2018-03-12 04:46 | NUR ---
PT HAS SLEPT QUIETLY THROUGHOUT THE SHIFT PAST [id number]
[2018-03-12 07:55] VITALS: BP 125/69
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
--- NOTE | 2018-03-12 16:37 | NUR ---
PM GROUP/EXERCISES/BINGO/ART PT ATTENDED GROUP BUT DID NOT PARTICIPATE DUE TO SLEEPING IN KATHLEEN CHAIR. PT SLEPT IN KATHLEEN CHAIR ENTIRE GROUP. PT WILL CONTINUE TO ATTEND GROUP AND BE ENOCURAGED TO PARTICIPATE.
--- NOTE | 2018-03-12 16:38 | NUR ---
PERSONAL DAILY GOAL PT UNABLE TO COME UP WITH GOAL DUE TO SLEEPING IN KATHLEEN CHAIR AT THIS TIME.
--- NOTE | 2018-03-12 17:35 | NUR ---
PT REFUSING ALL MEALS THIS SHIFT. DRANK APPROXIMATELY 800CC OF FLUIDS WITH MUCH ENCOURAGEMENT. ONLY ATE 10% OF LUNCH AND REFUSED BREAKFAST AND DINNER. DAVID GELLER CNP ON UNIT AT THIS TIME. NOTIFIED OF ABOVE.
[2018-03-12 20:00] VITALS: BP 135/70
--- NOTE | 2018-03-12 21:58 | NUR ---
24 HR chart check completed.
--- NOTE | 2018-03-12 23:18 | NUR ---
P-DEPRESSED MOOD, LIMITED INTERACTIONS I-1:1 PROVIDED FOR EMOTIONAL SUPPORT & VENTILATION OF FEELINGS. ASSIST WITH NEEDS, ADMINISTER MEDICATIONS, MONITOR SLEEP R-PT SITTING IN A RECLINED KATHLEEN CHAIR FOR COMFORT IN THE DINING ROOM WITH OTHER PEERS. ISOLATIVE TO SELF. LIMITED VERBAL INTERACTIONS. DEPRESSED MOOD. POLITE & RESPECTFUL WITH STAFF & OTHERS. REFUSED HS SNACK. COMPLIANT TAKING HS MEDICATIONS, STATED HE WAS FEELING BETTER BUT IS JUST TIRED. P-CONTINUE TO MONITOR, PROVIDE PHYSICAL & EMOTIONAL SUPPORT NEEDED
--- NOTE | 2018-03-13 05:57 | NUR ---
PT HAS SLEPT QUIETLY THROUGHOUT THE SHIFT PAST 2100
--- NOTE | 2018-03-13 07:27 | NUR ---
OT NOTE Pt was seen this A.M. 1:1 for 17 minute OT session. Upon arrival pt was sitting semi reclined in dining room. Pt identified by name and and had no complaints at this time. Pt was sat upright in kary chair where he completed AAROM to RUE over all planes of motion for 1 x 10 to increase and restore maximum functional use in ADL/IADL tasks. Pt also completed LUE towel exercises over all planes of motion for 1 X 10 to increase UE strength needed for increased I in self care tasks and functional transfers. Pt was left sitting semi reclined in kary chair with lap tray in place, body alarm on for safety, and under [facility] staff supervision. Continue with rec D/C plan to SNF. SHEILA Cullen/Lilian
[2018-03-13 08:09] VITALS: BP 125/74
--- NOTE | 2018-03-13 10:56 | NUR ---
PERSONAL DAILY GOAL TRUST ISSUES PT STATES, "I JUST WANT TO BE ABLE TO TRUST PEOPLE TO DO WHAT THEY SAY THEY ARE GOING TO DO"
--- NOTE | 2018-03-13 12:13 | NUR ---
AM GROUP/EXERCISES/GAMES PT ATTENDED AND PARTICIPATED DURING GROUP. PT OPEN AND PLEASANT WITH PEERS. THIS STAFF NOTICED PT DROOLING THROUGHOUT GROUP. PT COMPETETIVE DURING GAMES TEASING PT'S AND MAKING PEERS LAUGH. PT DID NOT BECOME DELUSIONAL AND AGGRESSIVE AT THIS TIME. PT WILL CONTINUE TO ATTEND AND PARTICIPATE IN GROUP SESSIONS.
--- NOTE | 2018-03-13 15:51 | NUR ---
PM GROUP/ART/MUSIC PT UNABLE TO ATTEND GROUP DUE TO BEING DISRUPTIVE THE FIRST 10 MINUTES YELLING OUT "HELP GET ME OUT OF THIS CHAIR" AND YELLING AT OTHER PT'S TO "SHUT UP, YOU JUST SHUT UP". PT TAKEN TO QUIET ROOM FOR 1:1 WITH ANOTHER STAFF MEMBER. PT WILL CONTINUE TO BE ENOCURAGED TO ATTEND AN DPARTICIPATE IN FUTURE GROUP SESSIONS.
--- NOTE | 2018-03-13 16:41 | NUR ---
DR. STARKEY ON UNIT TO ASSESS PATIENT.
--- NOTE | 2018-03-13 16:46 | NUR ---
PATIENT IS ALERT AND ORIENT TO PERSON, ABLE TO RECALL THAT HE IS IN THE HOSPTIAL. LONG/SHORT TERM MEMORY DIFICIT NOTIED. MOOD IS IRRITABLE. DENIES ANY HALLUCINATIONS, DELUSIONS, HI/SI OR PAIN. RESPONDS TO INTERNAL STIMULI, BELIEVE HE IS LANDING FROM PLANE AND GOING TO [place]. PATIENT REORIENTED TO REALITY. 2 PERSON ASSIST WITH ACTIVITIES OF DAILY LIVING, INCONTINENT OF BOWEL AND BLADDER. SET UP FOR MEALS, INTAKES ARE IMPROVIING WITH MUCH ENCOURAGEMENT WITH FLUIDS. UP IN KATHLEEN CHAIR WITH TRAY DUE TO POOR SAFETY AWARENESS. PATIENT ASSIST TO BATHROOM FOR TOILETING NEED. PATIENT DID NOT HELP WITH TRANSFER AND WAS A 2 PERSON EXTENSIVE PHYSICAL ASSIST. PATIENT INTERACTIVE WITH STAFF AND PARTICIPATED IN GROUP SESSION THIS MORNING. DISRUPTIVE IN AFTER GROUP SESSION, YELLING OUT. PATIENT ASSISTED TO QUIET ROOM FOR CHANGE OF ENVIRONMENT AND LOW STIMLI. CONTINUE TO MONITOR FOR AGGRESSION, PROVIDE ONE ON ONE AND REDIRECTION NEEDED P: YELLING OUBURST AND DELUSIONAL STATEMENT (SEE ABOVE) I: PROVIDE ONE ON ONE, REDIRECTION, REORIENT TO REALITY,CHANGE OF ENVIRONMENT, ASSIST TO BATHROOM FOR TOILETING NEEDS. R: EFFECTIVE P: CONTINUE NON-PHARMLOGICAL INTERVENTIONS.
[2018-03-13 20:47] VITALS: BP 114/69
--- NOTE | 2018-03-14 02:47 | NUR ---
P-DEPRESSED MOOD I- 1:1 PROVIDED FOR EMOTIONAL SUPPORT AND VENTILATION OF FEELINGS. ENCOURAGE MEDICATION COMPLIANCE AND EDUCATE. MONITOR SLEEP. R- PT GUARDED DURING 1:1, STATED "IM DEPRESSED BUT I DONT WANT TO TALK ABOUT IT". PT THEN ALSO STATED "MY WANTS TO LEAVE ME", WHEN ASKED BY THIS NURSE TO EXPLAIN FURTHER, PT AGAIN BECAME GUARDED AND STATED "IT HAPPENS, DONT REALLY WANT TO TALK ABOUT IT". PT DENIES SUICIDAL IDEATIONS. MEDICATION COMPLIANT WITHOUT DIFFICULTY AFTER REVIEW. COOPERATIVE WITH CARE, NO AGITATION NOTED. P- CONTINUE TO PROVIDE 1:1 AND EMOTIONAL SUPPORT FOR PATIENT TO VOICE FEELINGS. ENCOURAGE MEDICATION COMPLIANCE. MONITOR FOR CHANGES IN MOOD AND BEHAVIOR.
--- NOTE | 2018-03-14 05:47 | NUR ---
24 HOUR CHART CHECK COMPLETED.
--- NOTE | 2018-03-14 06:22 | NUR ---
PATIENT OBSERVED ON Q 15 MIN CHECKS TO HAVE SLEPT APPROX 8 HOURS WITH X1 AWAKENINGS TO USE THE RESTROOM WITH ASSISTANCE OF STAFF. NO SIGNS OR SYMPTOMS OF DISTRESS NOTED.
--- NOTE | 2018-03-14 07:30 | NUR ---
OT NOTE Pt was seen this A.M. 1:1 for 15 minute OT session. Upon arrival pt was sitting upright in kary chair in dining room, pt identified by name and . Pt had no complaints at this time and OT intervention was observed only by SUPERVISOR HANGING AND TRIMMING Ramsey Woo. Pt was taken out into the hallway where he completed sit to stand transfers with modA and constant verbal prompts for proper hand placement. Challenged pt's standing balance without UE support for increased I and enhanced safety in self care tasks and functional transfers, pt was able to maintain P+/F- standing balance requiring Chrystal and UE support due to having LOB both backwards and to his R. Pt then completed AAROM to RUE over all planes of motion for 1 X 10 to increase and restore maximum functional use during ADL/IADL tasks. Throughout entire session pt required constant verbal prompts for attention to task. Pt was left sitting upright in kary chair in dining room with lap tray in place, body alarm on for safety, and under [facility] staff supervision. Continue with rec D/C plan to SNF. SHEILA Cullen/Lilian
[2018-03-14 08:03] VITALS: BP 116/68
--- NOTE | 2018-03-14 08:15 | NUR ---
Treatment Plan meeting with Dr. Kenney, RN, AT, SW and Glassworker. Plan for discharge at the end of the week. Pt. accepted at [facility].
--- NOTE | 2018-03-14 09:50 | NUR ---
PHYSICAL THERAPY PAtient evaluated on three this date, full evaluation to follow. Continue with PT as per plan of care with fall, unit three, MA X(*a) X 1-2, and alarms prn percautions. Patient is moderate complexity via chart review, tests and evaluation: 31120. Thank you for this referral. Yessi Callahan,PT
--- NOTE | 2018-03-14 10:00 | NUR ---
DR. STARKEY ON UNIT TO ASSESS PATIENT.
--- NOTE | 2018-03-14 11:45 | NUR ---
Kalpana Faulkner from [facility] here to do onsite Assessment. SPoke with patient and introduced himself. Pt. pleasant and joking. Advised Kalpana of Plans to discharge at the end of the week.
--- NOTE | 2018-03-14 11:55 | NUR ---
PERSONAL DAILY GOAL SELF-EXPRESSION PT STATES, "I'M JUST A LOSER. I'VE BEEN THIS WAY MY WHOLE LIFE. I WANT TO LEARN TO EXPRESS MYSELF BETTER"
--- NOTE | 2018-03-14 11:56 | NUR ---
AM GROUP/EXERCISE/SELF-WORTH PT WAS PRESENT FOR GROUP BUT CHOSE NOT TO PARTICIPATE BUT SAT WITH EYES CLOSED. PT BECAME A DISRUPTION BY STATING, "WHY DO I HAVE TO BE LOCKED IN THIS CHAIR, NO ONE ELSE DOES, EVERYONE ELSE CAN GET UP IF THEY WANT TO." PT WOULD NOT BE REDIRECTED AND BECAME VERBALLY ABUSIVE AND STATED,"GO AHEAD, WHEEL ME OUT OF THIS ROOM, THAT'S EXACTLY WHAT I WANT, I CAN CALL THE AMERICAN BOARD CERTIFIED ORTHOTIST" PT WAS REMOVED FROM THE ACTIVITY A DISRUPTION TO PEERS AND THE GROUP PROCESS.
--- NOTE | 2018-03-14 14:00 | NUR ---
SPoke with Patient via telephone. Advised of plans to discharge Patient on Tuesday and that patient accepted at [facility]. receptive.
--- NOTE | 2018-03-14 15:35 | NUR ---
PM GROUP/LEISURE ACTIVITY PT WAS PRESENT FOR AFTERNOON GROUP BUT REFUSED TO PARTICIPATE. PT ASKED TO BE TAKEN TO THE RESTROOM AT 2:40 PM AND CLINICAL STAFF WAS NOTIFIED. PT ASKED AGAIN AT 3:05 AND WAS BEGGING, "OH, PLEASE, COME ON, I REALLY HAVE TO GO TO THE RESTROOM! PLEASE!" MILIEU WAS NOTIFIED. PT WAS TAKEN INTO THE HALLWAY A DISRUPTION TO THE GROUP.
[2018-03-14 20:32] VITALS: BP 106/66
--- NOTE | 2018-03-15 03:02 | NUR ---
P- CONFUSION, IRRITABILITY I- ASSESS ORIENTATION. REDIRECT AND REORIENT TO REALITY. PROVIDE 1:1 FOR EMOTIONAL SUPPORT. ENCOURAGE MEDICATION COMPLIANCE. MONITOR SLEEP. R- PATIENT ALERT AND ORIENTED TO SELF, STATED "WHY AM I IN A GARAGE, ISNT THIS A GARAGE, WHY AM I IN THIS CAR?". EASILY REDIRECTED FOR SHORT PERIODS. RECEPTIVE TO 1:1, CALMER DEMEANOR NOTED. MEDICATION COMPLIANT AFTER MINIMAL PROMPTING. P- CONTINUE TO ASSESS MOOD AND CONFUSION, REORIENT AND REDIRECT NEEDED. PROVIDE 1:1 FOR EMOTIONAL SUPPORT. ENCOURAGE MEDICATION COMPLIANCE.
--- NOTE | 2018-03-15 04:41 | NUR ---
24 HOUR CHART CHECK COMPLETED.
--- NOTE | 2018-03-15 06:18 | NUR ---
PATIENT OBSERVED ON Q 15 MIN CHECKS TO HAVE SLEPT APPROX 6 HOURS WITH NO AWAKENINGS OR SIGNS AND SYMPTOMS OF DISTRESS NOTED.
--- NOTE | 2018-03-15 07:15 | NUR ---
OT NOTE Pt was seen this A.M. 1:1 for 15 minute OT session. Upon arrival pt was sitting upright in kary chair, pt identified by name and on wristband and had no complaints at this time. Pt was taken out into the hallway where he completed multiple sit to stand transfers from chair level with modA for inital attempt, educated pt on proper hand placement for increased I and pt was then able to complete last two attempts with Chrystal. While standing at the hand railing challenged pt's standing balance needed for increased I and enhanced safety in self care tasks and functional transfers and pt was able to maintain F- standing balance requiring Chrystal to maintain. Pt then completed towel exercises to his LUE over all planes of motion for 1 X 10 to increase UE strength and AAROM completed to RUE over all planes of motion to increase and restore maximum functional use in self care tasks. Pt was left sitting upright in kary chair with lap tray in place, body alarm on for safety, and under [facility] staff supervision. Continue with rec D/C plan to SNF. SHEILA Cullen/Lilian
--- NOTE | 2018-03-15 07:30 | NUR ---
PHYSICAL THERAPY Patient seen this am for therapy visit and was sitting up in activity room Angie chair upon therapist arrival. Patient was pleasant, voicing no new c/o's this morning as OT public health training assistant was present for observation only during entire treatment. Patient transfers sit to stand @ rail with Mod A and ambulates BRASS BOBBIN WINDER/Mod, 25'x 2, demonstrating "scissoring" gait pattern with some retrograde posture. Patient needed v/c to widen HARMAN with increased stride / heel strike and demonstrated increased difficulty while turning around. Patient remains very unsteady during gait ex and returned to Angie chair under [facility] staff Supervision, including body alarm for safety. Will continue per POC as tolerated, total treatment time 16 minutes. Ramsey Woo, CLIENT DELIVERY SPECIALIST
[2018-03-15 07:50] VITALS: BP 130/67
--- NOTE | 2018-03-15 08:15 | NUR ---
Treatment plan meeting with Dr. Kenney, RN, SW and Etcher Electrolytic. Plan for discharge Tuesday with possibilty of Tuesday discharge. Pt. has been accepted at [facility].
--- NOTE | 2018-03-15 09:32 | NUR ---
PERSONAL DAILY GOALS REALITY ORIENTATION PT IS EXHIBITING HALLUCINATIONS AND IS VERY EASLY REDIRECTED. PT BENEFITS FROM BEING PRESENTED WITH REALITY
--- NOTE | 2018-03-15 11:42 | NUR ---
MADE AWARE OF CRITICAL AMMONIA OF 111, STATES TO INCREASE LACTULOSE TO 3X A DAY. ORDERS CARRIED OUT.
--- NOTE | 2018-03-15 11:47 | NUR ---
AM GROUP/EXERCISE/BRAIN GAMES PT WAS PRESENT FOR MORNING GROUP THERAPY BUT CHOSE NOT TO PARTICIPATE. PT WAS RECLINED IN A KATHLEEN CHAIR AND SLEPT.
--- NOTE | 2018-03-15 15:41 | NUR ---
PM GROUP/AROMATHERAPY/GUIDED MEDITATION PT WAS PRESENT AT THE BEGINNING OF AFTERNOON GROUP AND WAS AGITATED AND YELLING AT A PEER. PT WAS REDIRECTED SEVERAL TIMES BUT CONTINUED. PT WAS DISRUPTIVE TO THE GROUP AND WAS REMOVED TO A QUIET ROOM
--- NOTE | 2018-03-15 15:42 | NUR ---
OCCUPATIONAL THERAPY CO-SIGN I approve of the Occupational Therapy notes written above. PATRICK LERNER OTR/Lilian
--- NOTE | 2018-03-15 17:34 | NUR ---
P-PT ALERT AND ORIENTED X3 WITH PERIODS OF CONFUSION AND ST/LT MEMORY DEFICITS. PT EXPERIENCING VISUAL HALLUCINATIONS; PICKING UP UNSEEN THINGS OFF THE FLOOR AND WATCHING THE "TV" ON THE BARE WALL. STATES HE IS HERE DUE TO "MY IGNORANCE OF LIFE. I WAS CARRYING ON, YELLING, SCREAMING." I-REALITY PRESENTED, EMOTIONAL SUPPORT PROVIDED. R-PT PLEASANT AND COOPERATIVE WITH STAFF. MEDICATION COMPLIANT WITHOUT DIFFICULTY. ACCEPTED REALITY AND ABLE TO VOICE THAT WHAT HE WAS SEEING IS NOT REAL AND "IT MUST BE IN MY HEAD." POSITIVE REINFORCEMENT GIVEN. NAPS INTERMITTENTLY T/O THE DAY. P-ENCOURAGE GROUPS, PRESENT REALITY NEEDED.
[2018-03-15 20:03] VITALS: BP 119/63
--- NOTE | 2018-03-15 22:48 | NUR ---
24 HR chart check completed.
--- NOTE | 2018-03-15 23:20 | NUR ---
P-DEPRESSED MOOD I-1:1 PROVIDED FOR EMOTIONAL SUPPORT & VENTILATION OF FEELINGS. ADMININSTER MEDICATIONS, MONITOR SLEEP R-MILDLY DEPRESSED. PLEASANT & WELL MANNERED. STATED THAT HE IS FEELING A LITTLE BIT BETTER. COMPLIANT TAKING HS MEDICATIONS WHOLE. P-CONTINUE TO MONITOR & PROVIDE WITH PHYSICAL ASSISTANCE & EMOTIONAL SUPPORT NEEDED.
--- NOTE | 2018-03-16 05:45 | NUR ---
PT HAS SLEPT QUIETLY PAST 2200
--- NOTE | 2018-03-16 07:20 | NUR ---
PHYSICAL THERAPY Patient seen this am for therapy visit and was sitting in activity room Angie chair upon therapist arrival. Patient voices no new c/o's this morning and OT funeral home assistant was present for observation only during entire therapy session. Patient transfers sit to stand with MIN a x 1, demonstrating a little unsteady standing balance upon intial rise and ambulated with use of wh walker, 50'x 1, Min A, demonstrating retrograde posture. Patient also demonstrated "shaky" gait pattern at first and following v/c was able to improve slightly. Patient was impulsive at times while trying to turn and demonstrated POOR walker safety / navigation with increased gait velocity, including picking walker up while turning. Patient returned to Angie chair in activity room awaiting breakfast with lap tray, body alarm and under [facility] staff Supervision. Will continue per POC as tolerated, total treatment time 15 minutes. Ramsey Woo, HIGHWAY DESIGN ENGINEER
--- NOTE | 2018-03-16 07:25 | NUR ---
OT NOTE Pt was seen this A.M. 1:1 for 15 minute OT session. Upon arrival pt was sitting upright in kary chair, pt identified by name and and had no complaints at this time. Pt was taken out into the hallway where he completed sit to stand transfer from chair level with modA and use of w/w for UE support. Challenged pt's dynamic standing tolerance needed for increased I and enhanced safety in self care tasks and functional transfers. Had pt complete tasks that involved weight shifting, crossing midline, and bilateral integration. Pt was unable to remove B hands at the same time and was only able to complete tasks with one hand while maintaining P+ balance throughout requiring modA due to retrograde posture. Educated pt on self ranging BUE ROM to increase and restore ROM in his RUE, 1 X 10 completed over all planes of motion. Pt was left sitting upright in kary chair with lap tray in place, body alarm on for safety, and under [facility] staff supervision. Continue with rec D/C plan to SNF. SHEILA Cullen/Lilian
[2018-03-16 08:09] VITALS: BP 119/71
--- NOTE | 2018-03-16 10:56 | NUR ---
PT IS ABRUPT AND SARCASTIC WITH VERBAL INTERACTION. PT STATES "IF YOU GIVE ME ANY MORE FOOD, I'M GOING TO GIVE IT BACK TO YOU" AND "YEAH, I'M FEELING BETTER TODAY THAN YESTERDAY, BUT THAT'S NOT SAYING MUCH". PT YELLING OUT IN GROUP THERAPY STATING "QUIET, SHUT UP" SPEAKING AND YELLING NONSENSICALLY. PT REDIRECTED FROM USING SARCASTIC COMMENTS AND YELLING OUT AT STAFF . PT REMOVED FROM GROUP THERAPY AND DIVERTED WITH ACTIVITY OF READING NEWSPAPER. PT IS CURRENTLY SITTING WITH STAFF. DIVERSION ACTIVITY SOMEWHAT EFFECTIVE. PT IS CURRENTLY LOOKING AT NEWSPAPER. SARCASTIC COMMENTS CONTINUE STATING "[facility] NEWSPAPERS ARE FOR USE TOILET PAPER". PT CONTINUES TO YELL OUT, BUT LESS OFTEN AT THIS TIME. CONTINUE TO REDIRECT PT NEEDED. PROVIDE PT WITH DIVERSIONAL ACTIVITIES AND LOW STIMULATION NEEDED TO DECREASE AGITATION AND BEHAVIORS. ENCOURAGE CONTINUED MEDICATION COMPLIANCE.
--- NOTE | 2018-03-16 11:50 | NUR ---
AM GROUP/EXERCISE/CURRENT EVENTS PT WAS PRESENT FOR MORNING GROUP THERAPY AND PARTICIPATED FOR THE FIRST TIME IN THE EXERCISE AND CURRENT EVENTS ACTIVITY. PT SPOKE LEGIBLY WITH NO DELUSIONAL IDEATIONS. PT FOLLOWED DIRECTIONS AND WAS CURTIOUS. BUT WITH 30 MINUTES OF GROUP LEFT, PT BECAME VERY AGITATED WITH PEERS WHO WERE SPEAKING AND BEGAN YELLING AT THEM, "SHUT UP! WILL YOU JUST STOP TALKING, SHUT UP!" PT COULD NOT BE REDIRECTED AND WAS REMOVED FROM THE ACTIVITY ROOM A DISRUPTION. PT ACCUSED THE MILIEU OF "SWINGING AT HIM" HE WAS BEING REMOVED FROM THE ROOM AND ONCE PT WAS IN THE HALLWAY, BEGAN YELLING AT THE DIE MAINTENANCE TECHNICIAN, "SHUT UP!"
--- NOTE | 2018-03-16 12:39 | NUR ---
Detailed continued review stay clinicals left for Francisca at [facility]. Awaiting return call.
--- NOTE | 2018-03-16 15:45 | NUR ---
NO PM THERAPY DUE TO 1:1 SESSIONS WITH PEERS
--- NOTE | 2018-03-16 16:09 | NUR ---
IP 5 additional days approved per Francisca at [facility], 03/17-03/21, NRD 03/21. Auth # [id number]
--- NOTE | 2018-03-16 18:26 | NUR ---
Shift chart check completed.
[2018-03-16 20:00] VITALS: BP 120/75
--- NOTE | 2018-03-16 21:54 | NUR ---
24 HR chart check completed.
--- NOTE | 2018-03-16 22:46 | NUR ---
P-AGITATION I-PROVIDE 1;1 FOR EMOTIONAL SUPPORT, REORIENT, PRESENT REALITY, ADMINISTER MEDICATIONS, MONITOR SLEEP R-PT IS ANGRY & VERY DEMANDING. INCREASED IRRITABILITY WHEN DEMANDS ARE NOT IMMEDIATELY MET. LOUD & CURSING. ALERT TO PERSON ONLY. STATES, "I DON'T GIVE A DAM ABOUT ALL OF THAT. WHATS A MATTER WITH YOU DAM PEOPLE. COMPLIANT TAKING HS MEDICATIONS WHOLE. REQUIRED 2 STAFF ASSISTS FOR ASSISTANCE TO BED. P-CONTINUE TO MONITORY & PROVIDE WITH PHYSICAL ASSISTANCE & EMOTIONAL SUPPORT NEEDED.
--- NOTE | 2018-03-17 05:39 | NUR ---
PT HAS SLEPT PAST 2200. HAD A BRIEF AWAKENING & C/O STOMACH PAIN. GIVEN MARIO ALBERTO KETAN & RETURNED TO SLEEP.
--- NOTE | 2018-03-17 07:15 | NUR ---
OT NOTE Pt was seen this A.M. 1:1 for 15 minute OT session. Upon arrival pt was sitting upright in kary chair, pt identified by name and . Pt had complaints of nausea. Pt completed towel exercises to LUE over all planes of motion for 1 X 10 to increase UE strength for increased I in functional transfers. Pt then completed AAROM to RUE over all planes of motion for 1 X 10 to increase and ROM needed to increase maximum functional use in ADL/IADL tasks. Pt was then left sitting semi reclined in kary chair with lap tray in place, body alarm on for safety, and under [facility] staff supervision. Continue with rec D/C plan to SNF. SHEILA Cullen/Lilian
--- NOTE | 2018-03-17 07:35 | NUR ---
PHYSICAL THERAPY Patient reported this am he was feeling a little sick with increased Nausea and not appropriate for therapy at this time. Will continue per POC as able. Ramsey Woo, LUTE PACKER OR APPLIER
[2018-03-17 07:36] VITALS: BP 122/69
[2018-03-17 07:44] LABS: BASO % 0.5 % (0.0-1.0); HEMATOCRIT 40.5 % (42.0-52.0); HEMOGLOBIN 13.5 g/dl (14.0-18.0); LYMPH # 1.2 10*3/uL (1.3-4.4); LYMPH % 19.5 % (27.0-41.0); MEAN CELL VOLUME 99.8 fl (80.0-94.0); MEAN CORPUSCULAR HGB 33.3 pg (27.0-31.0); MEAN CORPUSCULAR HGB CONC 33.3 g/dl (33.0-37.0); MEAN PLATELET VOLUME 10.3 fl (9.6-12.3); MONO # 0.8 10*3/uL (0.1-1.0); MONO % 13.5 % (3.0-9.0); NEUT % 66.3 % (47.0-73.0); PLATELET COUNT AUTOMATED 156 10*3/uL (130-400); RED BLOOD COUNT 4.06 10*6/uL (4.50-5.90); RED CELL DISTRI WIDTH 12.6 % (0-14.5)
[2018-03-17 07:50] LABS: BUN 12 mg/dl (7-24); CHLORIDE 106 mmol/L (98-107); CREATININE 0.78 mg/dL (0.70-1.30); POTASSIUM 3.7 mmol/L (3.5-5.1); SODIUM 140 mmol/L (136-145)
--- NOTE | 2018-03-17 08:30 | NUR ---
Treatment Plan meeting with Dr. Kenney, RN, AT, and Guest Request Runner. Plan for discharge Tuesday. Pt. accepted at [facility].
--- NOTE | 2018-03-17 11:51 | NUR ---
AM GROUP/CREATIVE OUTLETS PT WAS PRESENT FOR MORNING GROUP THERAPY BUT DID NOT PARTICIPATE. PT WAS SLEEPING IN A KATHLEEN CHAIR AND ONLY AWOKE TO ASK TO GO TO THE BATHROOM
--- NOTE | 2018-03-17 13:02 | NUR ---
DR. NIXON NOTIFIED OF SMALL LIQUID EMESIS. PT CONTINUES TO C/O NAUSEA. DR. NIXON STATES PT CAN HAVE ZOFRAN 4MG PO Q4H PRN. WITNESSED BY SECOND RN.
--- NOTE | 2018-03-17 14:00 | NUR ---
PT RESTING QUIETLY WITH EYES CLOSED AT THIS TIME. NO FURTHER EMESIS NOTED. PRN ZOFRAN APPEARS EFFECTIVE AT THIS TIME.
--- NOTE | 2018-03-17 15:40 | NUR ---
PM GROUP/RELAXATION PT WAS PRESENT DURING GROUP BUT DID NOT PARTICIPATE. PT WAS FEELING NAUSES AND SAT WITH HIS EYES CLOSED.
--- NOTE | 2018-03-17 17:31 | NUR ---
PT IS RESTING QUIETLY WITH EYES CLOSED AT THIS TIME. NO FURTHER EMESIS NOTED. PRN ZOFRAN APPEARS EFFECTIVE.
--- NOTE | 2018-03-17 17:38 | NUR ---
PRN ZOFRAN GIVEN AT THIS TIME PER ORDER D/T PT REFUSING SUPPER DUE TO NAUSEA. PT RESTING QUIETLY.
[2018-03-17 19:42] VITALS: BP 118/68
--- NOTE | 2018-03-17 22:21 | NUR ---
24 HR chart check completed.
--- NOTE | 2018-03-17 22:40 | NUR ---
P: ISOLATIVE TO ROOM AND WITHDRAWN TO SELF I: ENCOURAGED INCREASED INTERACTION WITH STAFF AND PEERS, MEDICATION COMPLAINCE, PROVIDED 1:1 TO ALLOW TIME FOR PT TO VENT FEELINGS, R: PT REFUSED TO LEAVE HIS BED AND REFUSED SNACK, PT INTERACTIVE WITH STAFF WHEN INITIATED BY STAFF, HOWEVER, WILL NO INITIATE INTERACTIONS HISELF P: CONTINUE TO ENCOURAGE INCREASED INTERACTIONS WITH STAFF AND PEERS, MEDICATION COMPLIANCE, AND PROVIDE 1:1 TO ALLOW PT TO VENT FEELINGS BEHAVIORS MONITORED WITH Q15 MIUTE SAFETY CHECKS.
--- NOTE | 2018-03-18 05:56 | NUR ---
PT SLEPT APPROXIMATELY 11 HOURS THIS SHIFT. Q15 MINUTE SAFETY CHECKS MAINTAINED.
[2018-03-18 06:50] LABS: BUN 13 mg/dl (7-24); CHLORIDE 104 mmol/L (98-107); CREATININE 0.78 mg/dL (0.70-1.30); POTASSIUM 3.6 mmol/L (3.5-5.1); SODIUM 139 mmol/L (136-145)
--- NOTE | 2018-03-18 08:00 | NUR ---
PT AWAKE, ALERT, SITTING IN DINING ROOM WITH PEERS. PT REFUSED BREAKFAST, STATED "NO" WHEN OFFERED FOOD AND DRINK.
[2018-03-18 08:03] VITALS: BP 143/70
--- NOTE | 2018-03-18 08:46 | NUR ---
THIS NURSE REAPPROACHED PT TO OFFER BREAKFAST, FOOD/FLUID, PT REFUSED, PT C/O NAUSEA. NO EMESIS AT THIS TIME. PT GIVEN PRN ZOFRAN 4MG SL AT THIS TIME. WILL MONITOR FOR EFFECTIVENESS.
--- NOTE | 2018-03-18 09:13 | NUR ---
ON UNIT TO SEE PT AT THIS TIME, MADE AWARE PT C/O NAUSEA THIS AM, WAS GIVEN PRN ZOFRAN. ALSO MADE AWARE PT HAD 5 BOWEL MOVEMENTS TOTAL YESTERDAY BETWEEN AM AND PM SHIFTS.
--- NOTE | 2018-03-18 10:02 | NUR ---
AMY MARKETING SUMMER INTERN ON UNIT TO SEE PT AT THIS TIME, UPDATE GIVEN.
--- NOTE | 2018-03-18 19:11 | NUR ---
PT IS ALERT WITH CONFUSION NOTED. ST/LT MEMORY GAPS. RESPS EASY AND EVEN ON ROOM AIR. PT C/O NAUSEA ON AND OFF T/O SHIFT. PT NOTED WITH APPARENT RESPONSE TO INTERNAL STIMULI, TALKING TO UNSEEN OTHERS. PT HAD A TOTAL OF 3 BMS THIS SHIFT. NO AGGRESSIVE BEHAVIORS NOTED THIS SHIFT. PT HAS HAD POOR PO INTAKE THIS DATE, PT DID EAT SOME CRACKERS AND GINGERALE THIS AFTERNOON. PT HAS BEEN MEDICATION COMPLIANT WITHOUT DIFFICULTY. Q15 MIN MONITORING CONTINUES PER POLICY.
[2018-03-18 20:09] VITALS: BP 121/67
--- NOTE | 2018-03-18 21:10 | NUR ---
PT HAD A LARGE EMESIS AFTER MEDICATIONS WERE GIVEN. HOC PROVIDED.
--- NOTE | 2018-03-18 21:19 | NUR ---
PT RECEIVED ZOFRANFOR NAUSEA AT THIS TIME. WILL MONITOR EFFECTIVENESS OF MEDICATION.
--- NOTE | 2018-03-18 21:22 | NUR ---
DR HULL ON UNIT TO ASSESS ANOTHER PT AND WAS MADE AWARE OF THIS PATIENTS CONDITION. DR HULL PLACED NEW ORDERS.
--- NOTE | 2018-03-19 00:52 | NUR ---
NO FURTHER EMESIS NOTED. PT HAD 9 LIQUID BOWEL MOVEMENTS DURING THE SHIFT. MEDICATION COMPLIANT. NO ADVERSE MOODS OR BEHAVIORS NOTED.
--- NOTE | 2018-03-19 05:47 | NUR ---
PT SLEPT APPROXIMATELY 6 HOURS THIS SHIFT. PT HAD 3 EMESIS AND 9 LIQUID BOWEL MOVEMENTS THIS SHIFT.
--- NOTE | 2018-03-19 06:06 | NUR ---
24 HR chart check completed.
--- NOTE | 2018-03-19 07:42 | NUR ---
ON UNIT TO SEE PT AT THIS TIME. FULL UPDATE GIVEN. AWARE PT HAD 3 EPISODES OF EMESIS OVERNIGHT WELL A TOTAL OF 12 LOOSE BOWEL MOVEMENTS YESTERDAY. MADE AWARE PT IS REFUSING MEALS AND HAS HAD POOR PO INTAKE. ASSESSED PT AND ENTERED NEW ORDERS. LAB ON UNIT AT THIS TIME FOR STAT CBC/BMP.
--- NOTE | 2018-03-19 07:46 | NUR ---
VITALS REASSESSED AT THIS TIME, CALLED AND RETURNED IMMEDIATELY TO UNIT. VITALS 98.0-118(APICALLY)-42-98/50-POX RANGING 80-82% ROOM AIR. OXYGEN APPLIED AT 2L VIA NC, POX MINIMALLY IMPROVED TO HIGH 80 RANGE. OXYGEN TITRATED UP TO 5L VIA VENTI MASK. POX INCREASED TO 92-94% VIA THE MASK WITH THE USE OF EAR PROBE FOR PULSE OX MEASUREMENT. BLOOD SUGAR 202. ENTERED NEW ORDERS FOR ADDITIONAL LABS AND EKG. THEN STATED TO HAVE THE PATIENT MOVED TO THE MEDICAL FLOOR, MONITORED BED WITH DX ACUTE RESPIRATORY FAILURE WITH HYPOXIA, STATED TO HAVE EKG COMPLETED ON U PRIOR TO TRANSFER. EKG AND RESPIRATORY THERAPIST ON UNIT. RT ASSUMED CARE OF THE PT'S OXYGEN TREATMENT. EKG WAS COMPLETED AND PT WAS THEN DISCHARGED TO ICCU PER . ICCU BED 8 ASSIGNED TO PT BY NURSING DIRECTOR INVESTOR RELATIONS. PT TRANSPORTED BY THIS [facility], [facility]ND [facility] RN, AND RESPIRATORY THERAPIST. BEDSIDE REPORT GIVEN TO ICCU NURSE BY THIS RN AND NEEDLE GRINDER RN ARTURO MADE AWARE PT HAS DOCUMENTED SEIZURE DISORDER AND TAKES DILANTIN. ALSO MADE AWARE PT HAS BEEN A CIVIL COMMITTMENT TO THE BEHAVIORAL HEALTH UNIT. ROXANE WOLF NP COVERING FOR AND ODESSA HUSSEIN MADE AWARE OF DISCHARGE TO MEDICAL FLOOR. ALL PERSONAL BELONGINGS WERE SENT WITH THE PT. PT LEFT THE UNIT AT 0808.
[2018-03-19 07:55] LABS: HEMATOCRIT 48.8 % (42.0-52.0); HEMOGLOBIN 16.5 g/dl (14.0-18.0); MEAN CORPUSCULAR HGB 33.8 pg (27.0-31.0); MEAN CORPUSCULAR HGB CONC 33.8 g/dl (33.0-37.0); MEAN PLATELET VOLUME 10.7 fl (9.6-12.3); PLATELET COUNT AUTOMATED 205 10*3/uL (130-400); RED BLOOD COUNT 4.88 10*6/uL (4.50-5.90); WHITE BLOOD COUNT 4.7 10*3/uL (4.8-10.8)
--- NOTE | 2018-03-19 07:55 | NUR ---
ATTEMPT TO INSERT PERIPHERAL IV 22GAUGE IN RIGHT FOREARM. STERILE TECHNIQUE USED. +BLOOD RETURN. ATTEMPT TO FLUSH 22GAUGE WITH NORMAL SALINE WITH IV INFILTRATING. PATIENT TOLERATED WITHOUT DIFFICULTY. PRESSURE DRESSING APPLIED. SANDI BARBER UPDATED ABOUT PATIENT'S CURRENT CONDITION AND NEED FOR MEDICAL MANAGEMENT. ORDER TO HOLD ALL PSYCHIATRIC MEDICATIONS AT THIS TIME
[2018-03-19 08:06] LABS: CREATININE 3.24 mg/dL (0.70-1.30); POTASSIUM 4.2 mmol/L (3.5-5.1)
[2018-03-19 08:16] LABS: ATYPICAL LYMPHS 1 % (0-0); BASOPHILS 2 % (0-1); PLATELET SUFFICIENCY NORMAL (NORMAL); TOTAL CELLS COUNTED 100 #CELLS
[2018-03-19] MEDS ORDERED: CELEXA20 MG PO (08:27)
[2018-03-19] MEDS ORDERED: COGENTIN0.5 MG PO (08:28)
[2018-03-19] MEDS ORDERED: LACTULOSE20 GM/30 M PO (08:28)
[2018-03-19] MEDS ORDERED: EXELON13.3 MG/21 TD (08:28)
[2018-03-19] MEDS ORDERED: NAMENDA10 MG PO (08:28)
[2018-03-19] MEDS ORDERED: RISPERIDONE M-TA2 MG PO (08:29)
[2018-03-19] MEDS ORDERED: ZOFRAN4 MG PO (08:29)
[2018-03-19] MEDS ORDERED: PHENERGAN25 M3 PO (08:30)
--- NOTE | 2018-03-19 08:41 | NUR ---
PATIENT'S SPOUSE-GREGOR WHITNEY NOTIFIED ABOUT PATIENT'S CHANGE IN CONDITION. PATIENT'S , GREGOR STATES THAT SHE IS IN THE PROCESS OF PERSUING GUARDIANSHIP BUT AT THIS TIME SHE FEELS THAT THE PATIENT WOULD STILL WOULD STILL WANT TO CONTINUE A FULL CODE STATUS. PATIENT'S , GREGOR ALSO STATED THAT SHE WILL NOT BE COMING IN TODAY, BUT WOULD LIKE ANY UPDATES IF POSSIBLE
--- NOTE | 2018-03-19 08:59 | NUR ---
PT'S SON JATIN PHONED UNIT, UPDATE GIVEN, ICCU DIRECT PHONE NUMBER PROVIDED TO SON FOR UPDATES. STATES HE WILL CALL THEM SHORTLY.
--- NOTE | 2018-03-19 13:06 | NUR ---
Collaborated with unit staff and Dr. Castillo and Scarlet PRINTING PRESSMAN Psych regarding pt being stabilized psychiatrically and medical need outweighing psych need as transfer to ICCU at [facility] occurred. Discussed PRINTING PRESSMAN writing in note something to send to court when they are open on Tuesday and plan for this newspaper writer to call court to leave VM. Dr. Castillo indicated pts medical condition was worsening and he was going to be transferred to a hospital as he possibly required surgery. Called [facility] [facility] to attempt to leave a indicating pt was discharged from psych unit as he is on a civil committment; however the message indicated the offices were closed and did not allow for leaving a message.
--- NOTE | 2018-03-20 07:25 | NUR ---
OCCUPATIONAL THERAPY CO-SIGN I approve of the Occupational Therapy notes written above. TIM JONAS
--- NOTE | 2018-03-20 11:13 | NUR ---
Left message for Francisca at [facility] regarding patient discharged to ICCU.
--- NOTE | 2018-03-27 08:08 | NUR ---
PHYSICAL THERAPY CO-SIGN I approve of the Phyical Therapy notes written above. GISSELLE TIJERINA PT
== END 2018-03-19 08:08 | disposition short-term general hospital (02) | DRG 883 ==
LOC: ED 12:58 → 3N 16:06
PROVIDERS: Emergency Medicine; Internal Medicine; ADMIT Psychiatry & Neurology Psychiatry
DX: F63.81 Intermittent explosive disorder (principal); F03.91 Unspecified dementia, unspecified severity, with behavioral disturbance; E72.4 Disorders of ornithine metabolism; R31.9 Hematuria, unspecified; G40.909 Epilepsy, unspecified, not intractable, without status epilepticus; D75.89 Other specified diseases of blood and blood-forming organs; Z98.890 Other specified postprocedural states; K21.9 Gastro-esophageal reflux disease without esophagitis

== ENCOUNTER 2018-03-19 08:12 | Inpatient (IN) | payer OTHER, MEDICAID ==
[2018-03-19] VITALS (17 sets, daily range): BP systolic 58–102; BP diastolic 0–74
[~2018-03-19] VITALS: Ht 170.2 cm; Wt 68.9 kg
--- NOTE | ~2018-03-19 | CON ---
[place], [place] REPORT OF CONSULTATION NAME: IVÁN OLSON UNIT #: [id number] ROOM: [facility] DOCTOR: MARTHA ROGERS MD BIRTHDATE: [birth year] DOS: 03/19/2018 REASON FOR CONSULTATION: Shock and atrial fibrillation. HISTORY OF PRESENT ILLNESS: The patient is a 72-year-old man who was admitted to the Behavioral Health Unit for confusion and behavioral disorders. He was noted to have elevated ammonia levels and placed on lactulose. Within the last 24 hours, the patient did develop increased diarrhea with 12 BMs overnight. He had had nausea for the last 2 days with decreased p.o. intake. This morning, the patient became lethargic. He was hypoxemic and hypotensive. An electrocardiogram showed atrial fibrillation. He was transferred to the Intensive Care Unit and intubated. He was hypotensive on admission and had signs of dehydration. He is therefore given multiple fluid boluses with some improvement in his blood pressure and heart rate. He actually converted back to sinus tachycardia. He developed further signs of hypotension and poor tissue perfusion however with a lactic acid level of 8.4. Blood gas initially showed a pH of 7.446 with a pCO2 of 34.3 and a pO2 of 73.1. With time; however, his pH fell to 7.303 with a pCO2 of 40.8 and a pO2 of 205.0. A serum bicarbonate level on blood gas fell from 23 to 19.3. Currently, he is intubated, on the ventilator, and struggling to breathe. Heart rate is 120 and sinus tachycardia. Blood pressure is 58 systolic. PAST MEDICAL HISTORY: Includes a history of "brain tumor," details not known, gastroesophageal reflux disease, and a seizure disorder. He has had some form of brain surgery. REVIEW OF SYSTEMS: Unobtainable because the patient is intubated on a ventilator. FAMILY HISTORY: Unobtainable. MEDICATIONS: Prior to admission included Natural Tears p.r.n., Cogentin 0.5 mg b.i.d., citalopram 20 mg daily, famotidine 20 mg b.i.d., hydrocodone with acetaminophen one tablet at bedtime, lactulose 30 grams t.i.d., Namenda 10 mg b.i.d., Zofran 4 mg q. 4 hours p.r.n., phenytoin 100 mg b.i.d., promethazine 12.5 mg q.4 hours p.r.n., risperidone 2 mg b.i.d., bisacodyl 10 mg rectally as needed and Exelon 13.3 mg topically per 24 hours change daily. ALLERGIES: The chart lists no known drug allergies. SOCIAL HISTORY: The patient does not use illegal drugs and has no history of drug or alcohol or tobacco abuse. PHYSICAL EXAMINATION: GENERAL: The patient is an elderly white male who appears uncomfortable on a ventilator. He is tachypneic. VITAL SIGNS: Pulse is 117, blood pressure is 58 systolic. HEENT: Normocephalic and atraumatic. Extraocular muscles are intact. Pupils are equal, round and reactive to light. They are small. He is orally [place], [place] REPORT OF CONSULTATION NAME: IVÁN OLSON UNIT #: [id number] ROOM: [facility] DOCTOR: MARTHA ROGERS MD BIRTHDATE: [birth year] intubated. NECK: Supple. He does not have jugular distention and has poor skin turgor. RESPIRATORY: Respirations are per ventilator. He has decreased breath sounds bilaterally. CARDIOVASCULAR: Heart has a regular rhythm with an S4 gallop. There is no S3. He has a grade 2/6 systolic ejection murmur along the left sternal border. There is no diastolic murmur. ABDOMEN: Distended and tympanitic. There are no bowel sounds heard and he does seem very uncomfortable when I palpated his abdomen. EXTREMITIES: Showed no edema. His electrocardiogram shows sinus tachycardia with frequent PACs and poor precordial R-wave progression. CT of the abdomen showed a severely dilated stomach and small bowel with air and fluid. There is pneumatosis of the stomach wall and within the veins of the stomach. There is a portal vein air within the liver. Sigmoid diverticulosis is present. The colon is not dilated. Hemoglobin was 16.5, hematocrit 48.8, white count was 4700, platelet count 205,000. INR is 1.1. Sodium is 137, potassium 4.2, chloride 98, CO2 of 25, BUN 37, creatinine 3.24, GFR 19 estimated. Lactic acid level 8.4. Troponin is mildly elevated at 0.157. IMPRESSION: 1. Shock, probably septic due to abdominal catastrophe. 2. Paroxysmal atrial fibrillation. The patient has returned to sinus tachycardia. 3. Poor tissue perfusion due to shock. 4. Renal failure. This appears to be acute compared to 03/18/2018, at which time the creatinine was 0.78. PLAN: The patient is receiving fluid resuscitation and I would continue aggressive replacement of fluid deficits. I think that he has third spacing much of his fluid into his abdomen at this point. He is already on maximum doses of Levophed. I do not think that the pressors are likely to improve his status more than just improving his fluid balance. I understand that there are plans to transfer him to a tertiary care center for acute abdominal assessment and possible surgery. I certainly agree with those plans. No other cardiac workup is available or planned at this moment. We thank the hospitalist physicians for asking our advice regarding his care. [place], [place] REPORT OF CONSULTATION NAME: IVÁN OLSON UNIT #: [id number] ROOM: [facility] DOCTOR: MARTHA ROGERS MD BIRTHDATE: [birth year] MARTHA ROGERS MD CM:CONSTR:REPORT OF CONSULTATION 1354 03/20/18 0909 interface
--- NOTE | ~2018-03-19 | DS ---
[place], [place] DISCHARGE SUMMARY NAME: IVÁN OLSON UNIT #: [id number] ROOM: [facility] DOCTOR: ROXANE WOLF CNP BIRTHDATE: [birth year] DOS: 03/19/2018 CHIEF COMPLAINT: The patient was discharged from to the ICU due to acute respiratory failure. HISTORY OF PRESENT ILLNESS: This is a 72-year-old male who was sent to the Emergency Room from [facility] in [place]. He was medically cleared in the Emergency Room before being admitted to Behavioral Health Unit, as reported that he had been punching flor, wanting the ceiling to open, so he can leave, threatening staff. He threw a lamp. Once he was medically cleared in the Emergency Room, then he was brought to the Behavioral Health Unit for further psychiatric stabilization. The patient was admitted to the unit. SUMMARY OF HOSPITAL COURSE: The patient was admitted to the Behavioral Health Unit, where he was started on Celexa 20 mg daily as well as Exelon, which was titrated to 13.3 mg patch daily. He was also titrated on Namenda to 10 mg twice a day. He was started on Risperdal, which was titrated to 2 mg twice a day and he was also started on benztropine 0.5 mg twice a day. It was found that while the patient was here that his ammonia level was significantly elevated and he was started on lactulose, which was ended up being increased to 30 grams 4 times a day. The patient's behavior significantly improved during his course here in the unit; however, this morning, the patient began to medically decline and became hypoxic. It was felt at this time that it was necessary to transfer him to the ICU. Psychologically, he was considered stable enough to proceed with the transfer. Mental Status: At the time of discharge, the patient was alert with some confusion. There was no kacey or hypomania noted. No delusions or paranoia noted. No auditory or visual hallucinations noted. DISCHARGE DIAGNOSES: Intermittent explosive disorder as well as dementia. DISPOSITION: The patient was transferred to the ICU here at [facility]. At the time of discharge from the unit, the patient was considered psychiatrically stable; however, he was medically declining; therefore, it was felt to be necessary to transfer him at this time. [place], [place] DISCHARGE SUMMARY NAME: IVÁN OLSON UNIT #: [id number] ROOM: [facility] DOCTOR: ROXANE WOLF CNP BIRTHDATE: [birth year] Roxane Wolf CNP CM:CHEO [id number] ROXANE WOLF CNP 03/28/18 1142 [facility]OREN[facility].TM
--- NOTE | ~2018-03-19 | EKG ---
[place], [place] ELECTROCARDIOGRAM REPORT NAME: IVÁN OLSON UNIT #: [id number] ROOM: [facility] DOCTOR: GERMAINE DRAFT REPORT BIRTHDATE: [birth year] [facility] Test Date: 2018-03-19 Test Time: 10:59:41 Pat Name: IVÁN OLSON Department: Room: [facility] 1 Gender: M Taker Off: Susanne Regalado : 1945 Requested By: ALMA MATT Order Number: [id number] Reading MD: Chavo Antunez MD Measurements Intervals [place] Rate: 125 P: CO: QRS: 20 QRSD: 140 T: 56 QT: 361 QTc: 521 Interpretive Statements Multifocal atrial tachycardia Ventricular premature complex Nonspecific intraventricular conduction delay Probable inferior infarct, old Probable lateral infarct, age indeterminate Probable anteroseptal infarct, recent Sinus rhythm no longer present Myocardial infarct finding still present Electronically Signed On 03-19-2018 20:06:19 PST by Chavo Antunez MD CM:EKGRPT:ELECTROCARDIOGRAM REPORT 1059 05 ALMA RESTREPO DRAFT REPORT ALMA MATT DO
--- NOTE | ~2018-03-19 | EKG ---
[place], [place] ELECTROCARDIOGRAM REPORT NAME: IVÁN OLSON UNIT #: [id number] ROOM: [facility] DOCTOR: GERMAINE DRAFT REPORT BIRTHDATE: [birth year] [facility] Test Date: 2018-03-19 Test Time: 14:02:14 Pat Name: IVÁN OLSON Department: Room: [place] [address] Gender: M Floral Manager: [id number] : 1945 Requested By: ALMA MATT Order Number: [id number] Reading MD: Chavo Antunez MD Measurements Intervals [place] Rate: 117 P: 67 TN: 128 QRS: 67 QRSD: 95 T: 69 QT: 317 QTc: 443 Interpretive Statements Sinus tachycardia Atrial premature complex Probable inferior infarct, old Probable anterolateral infarct, old Compared to ECG 03/07/2018 13:03:27 Multifocal atrial tachycardia is not now present Myocardial infarct finding still present Electronically Signed On 03-19-2018 20:08:59 PST by Chavo Antunez MD CM:EKGRPT:ELECTROCARDIOGRAM REPORT 1402 07 ALMA RESTREPO DRAFT REPORT ALMA MATT DO
[~2018-03-19 08:12] MED LIST: DILANTIN100 MG PO; DULCOLAX10 M1 R; EXELON1 EACH T; NAMENDA10 MG PO; NATURAL BALANCE15 M1 OU; NORCO 5-325 TA1 EACH PO; PEPCID20 MG PO; SEROQUEL25 MG PO; TYLENOL325 M3 PO
[2018-03-19 08:27] LABS: ABG BASE EXCESS 0.4 mmol/L (-2.0-2.0); ABG O2 SATURATION 94.7 % (95-97); ARTERIAL BLOOD GAS PCO2 34.3 mmHg (35-45); ARTERIAL BLOOD GAS PH 7.446 (7.35-7.45); ARTERIAL BLOOD GAS PO2 73.1 mmHg (80-90)
[2018-03-19] MEDS ORDERED: CELEXA20 MG PO (08:27)
[2018-03-19] MEDS ORDERED: EXELON13.3 MG/21 TD (08:28)
[2018-03-19] MEDS ORDERED: COGENTIN0.5 MG PO (08:28)
[2018-03-19] MEDS ORDERED: LACTULOSE20 GM/30 M PO (08:28)
[2018-03-19] MEDS ORDERED: NAMENDA10 MG PO (08:28)
[2018-03-19] MEDS ORDERED: ZOFRAN4 MG PO (08:29)
[2018-03-19] MEDS ORDERED: RISPERIDONE M-TA2 MG PO (08:29)
[2018-03-19] MEDS ORDERED: PHENERGAN25 M3 PO (08:30)
--- NOTE | 2018-03-19 08:35 | NUR ---
A 72, admitted to ICCU, under the services of ALMA Ignacio DO with a diagnosis of RESP FAILURE, HYPOXIA. Chief complaint is RESP FAILURE IN BHU. Patient arrived via stretcher from [place]. Monitor applied. Initial assessment completed. Vital signs taken and recorded. ALMA IGNACIO DO notified of admission to the unit. Orders received. See assessment for past medical history, medications and allergies. Patient and/or family oriented to unit. [facility] ICCU visitation policy reviewed. Clothing/patient valuable form completed. MARGARETH LAL
[2018-03-19 08:44] LABS: ACT PARTIAL THROMBO TIME 24.7 SECONDS (20.8-31.5); INTERNATIONAL NORM RATIO 1.1 (2.0-3.5)
[2018-03-19 08:57] LABS: BILIRUBIN NEGATIVE (NEGATIVE); BLOOD NEGATIVE (NEGATIVE); CLARITY CLEAR (CLEAR); COLOR YELLOW (YELLOW); GLUCOSE NEGATIVE (NEGATIVE); KETONE TRACE (NEGATIVE); LEUKO ESTERASE NEGATIVE (NEGATIVE); NITRITE NEGATIVE (NEGATIVE); PH 5.5 (5.0-9.0); SPECIFIC GRAVITY 1.025 (1.005-1.030); UROBILINOGEN 0.2 E.U./dl (0.2-1.0)
--- NOTE | 2018-03-19 09:04 | NUR ---
DR CASH SPOKE WITH [facility] ABOUT CRITICAL FINDINGS.
--- NOTE | 2018-03-19 09:10 | NUR ---
DR MATT SPOKE WITH DR BASS HIMSELF AND MADE HIM AWARE OF NEW CONSULT ORDER.
[2018-03-19 09:11] LABS: RBC 0-2 rbc/hpf (0-2); WBC 0-2 wbc/hpf (0-5)
--- NOTE | 2018-03-19 09:15 | NUR ---
MESSAGE LEFT WITH FRANCK AT [facility] ANSWER SERVICE TO MAKE DR ROGERS AWARE OF NEW CONSULT ORDER.
--- NOTE | 2018-03-19 09:21 | NUR ---
I SPOKE WITH DR ROGERS AND MADE HIM AWARE OF PT'S CONDITION AND NEW CONSULT ORDER.
--- NOTE | 2018-03-19 10:26 | NUR ---
DR MATT MADE AWARE OF PT INCREASED RESP RATE AND MOIST RESPIRATIONS. ORDER TO DECREASED 3RD IV BOLUS BACK DOWN TO 125CC/HR. PT HAS ONLY HAD ABOUT 75CC OF URINE OUT. PT NO LONGER LETHARGIC BUT RESTLESS AND AGITATED AT THIS TIME IN CONSTANT MOTION IN THE BED AT THIS TIME.
--- NOTE | 2018-03-19 10:46 | NUR ---
NG TUBE PLACED IN RIGHT NARE. PT TOLERATED WELL AND IMMEDIATE RETURN OF 1450CC OF BROWN GASTRIC FLUID OBTAINED. PT HAVING RHOCHI. POX 84% ON 100% NON REBREATHER AT THIS TIME. DR MATT IN ICCU AT THIS TIME AND AWARE OF PT'S CONDITION.
--- NOTE | 2018-03-19 11:10 | NUR ---
Infomed consent obtained from family by Dr. MATT for elective intubation. Patient intubated with 8 Austrian endotracheal tube orally X 1 attempts. Patient sedated with ETOMADATE Respiratory therapy at bedside. Crash cart with emergency drugs available. Endotracheal tube inflated with 10cc's. Lungs auscultated for equality of breath sounds. Tube secured with Tube tamer at 25cm's. at level of LIP. Patient tolerated procedure FAIR. Portable chest X-ray obtained and reviewed for tube placement. Patient connected to ventilator CMV 16 mode, 500 tidal volume, 100 FIO2, 5 PEEP, and pressure support. MARGARETH LAL
--- NOTE | 2018-03-19 11:23 | NUR ---
PATIENT WAS IN RESPIRATORY DISTRESS, UNABLE TO ACHEIVE AN SPO2 OF 92% WITH A NON REBREATHING MASK ON AT 100% OXYGEN. SPO2 WAS 84% HEART RATE WAS [address] MATT CONTACTED FAMILY AND THEY AGREED TO ORAL INTUBATION. PATIENT WAS GIVE 20MG OF ATOMIDATE AND 1OO MG OF SUCCLYCHOLINE. PATIENT WAS RIGID FOR A MOMENT, BUT THEN FLACCID AFTER DRUGS WERE ON BOARD. PATIENT WAS INTUBATED WITH 8CM ENDOTRACHEAL TUBE WITH LITTLE ISSUE. TUBE WAS PLACED INITIONALLY AT 25CM AT THE LIP.THEN XRAY SHOWED WE COULD ADVANCE IT TO 27CM, TO HAVE IT AT 2 CM ABOVE THE LAVERNE. PATIENT IS RESTING COMFORTABLY A/C 16 500 100%O2 AND +5 OF PEEP WITH A HEART RATE OF 117 AND SPO2 OF 96%.
--- NOTE | 2018-03-19 11:54 | NUR ---
I SPOKE WITH PT'S GREGOR OLSON AND MADE HER AWARE OF PT'S CONDITION AND HIS IMPENDING TRANSFER TO [facility]. SHE IS AWARE THAT PT IS INTUBATED AND CONSENT FOR MLC RECIEVED.
--- NOTE | 2018-03-19 12:34 | NUR ---
DESPITE 4L NORMAL SALINE BOLUS COMPLETE PT'S BP 60/[address] MATT NOTIFIED AND LEVOPHED GTT ORDERED RECEIVED AND STARTED.
[2018-03-19 13:35] LABS: ABG HCO3 19.3 mmol/l (22-26); ABG O2 SATURATION 99.4 % (95-97); ARTERIAL BLOOD GAS PCO2 40.8 mmHg (35-45); ARTERIAL BLOOD GAS PH 7.303 (7.35-7.45)
--- NOTE | 2018-03-19 13:35 | NUR ---
PT'S BP VIA DOPPLER 58/0. DR MATT MADE AWARE AND LEVOPHED GTT TITRATED UP TO 30MCG/MIN.
[2018-03-19 13:36] LABS: ABG BASE EXCESS -5.9 mmol/L (-2.0-2.0)
--- NOTE | 2018-03-19 13:36 | NUR ---
DR ROGERS IN TO SEE PT AT THIS TIME. ORDER TO BOLUS WITH MORE FLUIDS RECEIVED.
[2018-03-19 14:13] LABS: CREATININE 3.19 mg/dL (0.70-1.30); POTASSIUM 4.1 mmol/L (3.5-5.1)
--- NOTE | 2018-03-19 14:22 | NUR ---
[facility] HERE TO TRANSPORT PT TO [facility].
--- NOTE | 2018-03-19 14:35 | NUR ---
2 BAGS OF NORMAL SALINE AND ANOTHER BAG OF LEVOPHED SENT WITH [facility] AT THEIR REQUEST FOR TRANSPORT.
--- NOTE | 2018-03-19 15:13 | NUR ---
ISABEL AT [facility] AT [phone] GIVEN REPORT.
--- NOTE | 2018-03-19 15:16 | NUR ---
I CALLED PT'S GREGOR AND MADE HER AWARE OF PT'S CONDITION AND THAT HE JUST LEFT HERE TO GO TO [facility].
== END 2018-03-19 14:51 | disposition short-term general hospital (02) | DRG 208 ==
LOC: ICCU 08:12
PROVIDERS: ADMIT Internal Medicine
PROC: 0BH17EZ Insertion of Endotracheal Airway into Trachea, Via Natural or Artificial Opening (ICD-10-PCS; principal; 2018-03-19)
PROC: 02HV33Z Insertion of Infusion Device into Superior Vena Cava, Percutaneous Approach (ICD-10-PCS; principal; 2018-03-19)
PROC: B548ZZA Ultrasonography of Superior Vena Cava, Guidance (ICD-10-PCS; principal; 2018-03-19)
PROC: 5A1935Z Respiratory Ventilation, Less than 24 Consecutive Hours (ICD-10-PCS; principal; 2018-03-19)
DX: J96.01 Acute respiratory failure with hypoxia (principal); G93.41 Metabolic encephalopathy; N17.0 Acute kidney failure with tubular necrosis; E72.20 Disorder of urea cycle metabolism, unspecified; F03.91 Unspecified dementia, unspecified severity, with behavioral disturbance; K56.699 Other intestinal obstruction unspecified as to partial versus complete obstruction; E87.2 Acidosis; R65.10 Systemic inflammatory response syndrome (SIRS) of non-infectious origin without acute organ dysfunction; I48.0 Paroxysmal atrial fibrillation; G40.909 Epilepsy, unspecified, not intractable, without status epilepticus; K21.9 Gastro-esophageal reflux disease without esophagitis; E78.2 Mixed hyperlipidemia; E86.0 Dehydration; E86.1 Hypovolemia; F63.81 Intermittent explosive disorder; K66.8 Other specified disorders of peritoneum; Z79.899 Other long term (current) drug therapy; Z79.1 Long term (current) use of non-steroidal anti-inflammatories (NSAID); I95.89 Other hypotension